=== PATIENT | female | born 1955 | race Caucasian/White ===

== ENCOUNTER → 2017-09-23 03:13 | Outpatient (CLI) | payer OTHER, SELFPAY ==
[2017-09-23 11:41] LABS: ALT 35 U/L (12-78); AST 27 U/L (15-37); Albumin 3.8 g/dL (3.4-5.0); Alkaline Phosphatase 37 U/L (46-116); Anion Gap 6.5 mmol/L (3-11); BUN 11 mg/dL (7-18); CO2 31.5 mmol/L (21.0-32.0); CREATININE 0.91 mg/dL (0.55-1.02); Chloride 105 mmol/L (98-107); Glucose 91 mg/dL (70-100); Potassium 4.3 mmol/L (3.5-5.1); Sodium 143 mmol/L (136-145); Total Protein 6.4 g/dL (6.4-8.2)
== END ==
DX: F41.9 Anxiety disorder, unspecified (principal); K21.9 Gastro-esophageal reflux disease without esophagitis; R00.2 Palpitations
CPT/HCPCS: 36415; 80053

== ENCOUNTER 2018-01-08 06:46 | Day surgery (SDC) | payer OTHER, SELFPAY ==
--- NOTE | 2018-01-07 09:07 | W.PIPPEYE ---
History of Present Illness Chief Complaint: Progressive decreased vision, right eye Narrative: The patient is a 62-year-old lady who presented with complaints of progressive decreased vision in both eyes at both distance and near. She can no longer read either with or without glasses. On examination she was noted to have significant bilateral nuclear cataracts with best corrected vision of 20/50 OD, 20/40 OS. The option of cataract surgery was offered to the patient and she felt she was symptomatic enough that she wished to proceed. NOTE: The Chief Complaint, HPI, Past Medical History, Past Surgical History, Family History, Social History, Medications, and complete Ophthalmic Exam with detailed Assessment and Plan have already been documented in the patient's outpatient ophthalmic record and are not covered again in detail here. PFSH Family History Mother Diabetes Alcohol abuse Heart disease Hyperlipidemia Neoplasm Cerebrovascular accident Father Essential hypertension Heart disease Neoplasm Cerebrovascular accident Sister Essential hypertension Hyperlipidemia Sister Essential hypertension Brother Asthma Grandfather Alcohol abuse Heart disease Cerebrovascular accident Grandfather Heart disease Grandmother Heart disease Grandmother Heart disease Maternal Aunt Diabetes Heart disease Sister No problems noted. Medical History Nuclear sclerotic cataract of right eye (Acute) Endometriosis Gallbladder calculus Small bowel obstruction Surgical History Abdominal hysterectomy (~1981) Cholecystectomy (~2004) Oophrectomy, Both small bowel obstruction (~09/2000) Meds Home Medications Medication Instructions Recorded Confirmed Type Lactobacillus acidophilus 1 cap PO DAILY 07/02/12 01/05/18 History Pyridoxine Hcl 100 mg PO DAILY 07/02/12 01/05/18 History glucosam-chond km-faxear-kj ac 1 cap PO DAILY 07/02/12 01/05/18 History hawthorn extract 450 mg PO DAILY 07/02/12 01/05/18 History lysine [L-Lysine] 500 mg PO DAILY PRN 07/02/12 01/05/18 History omega-3 fatty acids-fish oil 1 cap PO DAILY 07/02/12 01/05/18 History Lymph Gland Cleanse 850 mg PO DAILY 08/25/14 01/05/18 History aspirin [Aspir 81] 81 mg PO DAILY tab-cap 08/25/14 01/05/18 History calcium carbonate-mag oxide 1 ea PO DAILY 08/25/14 01/05/18 History [Oyster Shell Calcium-Magnes Tb] coenzyme Q10 [Coq-10] 100 mg PO DAILY PRN 08/25/14 01/05/18 History echinacea 500 mg PO DAILY PRN 08/25/14 01/05/18 History multivitamin [Daily Vitamin] 1 ea PO daily prn 08/25/14 12/23/17 History penciclovir [Denavir] 1 denise TOPICAL DIRECTED #1.5 gm 09/03/15 01/05/18 History polyethylene glycol 3350 [Miralax] 1 cap PO DAILY 09/03/15 01/05/18 History amitriptyline 5 mg PO HS PRN #30 tab 09/07/17 01/05/18 History atenolol 0.5 tab PO DAILY #45 tab-cap 09/07/17 01/05/18 Rx Allergies Allergy/AdvReac Type Severity Reaction Status Date / Time tomato Allergy Intermediate SORES Unverified 01/05/18 14:16 nickel Allergy RED RUNNY Unverified 01/05/18 14:16 RASH DUST Allergy Intermediate Uncoded 01/05/18 14:16 Exam OCULAR EXAM:: Visual acuity at distance: Best corrected to 20/50 right eye, 20/40 left eye. Pupils: Pupils equal, round, and reactive without afferent pupillary defect IOP: 12 OD 11 OS Extraocular Motility: Normal Pertinent Slit Lamp Findings: Significant for pupils dilating to 7 mm OU. 3+ yellow nuclear cataract OU. Dilated Funduscopic Examination: Significant for disc cupping of 0.3 OU with good color. The optic nerves have good perfusion and normal color. The retinal vasculature is normal without significant tortuosity or abnormality. The maculas are normal in appearance with normal contour and foveal reflex appropriate for age. The peripheral retina and vitreous are normal. BRIGHTNESS ACUITY TESTING (BAT):: Off right eye 20/50 Low: 20/60 Medium: 20/60 High: 20/80 Assessment and Plan (1) Nuclear sclerotic cataract of right eye: Current visit: No Status: Acute Assessment: Visually significant cataract, right eye. Plan: Cataract extraction with intraocular lens implantation, right eye Note: NOTE:: The details of the planned surgery, including the risks, indications,limitations,expectations,outcome and possible complications were explained to the patient. The patient understands the complications including, but not limited to: infection, hemorrhage, posterior dislocation of the lens or nuclear fragments which may require the intervention of a vitreoretinal surgeon, possible loss of the eye, or from anesthetic complications. The patient has been made aware of the option of not having surgery, that vision following surgery may not be equal to that prior to surgery, and that the planned surgery may not achieve the intended results. Following this discussion, which the patient appeared to understand, the patient wishes to proceed with cataract surgery with lens implantation of the affected eye to improve and maximize vision.
--- NOTE | 2018-01-07 09:10 | POEE_ITS ---
History of Present Illness Chief Complaint: Progressive decreased vision, right eye Narrative: The patient is a 62-year-old lady who presented with complaints of progressive decreased vision in both eyes at both distance and near. She can no longer read either with or without glasses. On examination she was noted to have significant bilateral nuclear cataracts with best corrected vision of 20/ 50 OD, 20/40 OS. The option of cataract surgery was offered to the patient and she felt she was symptomatic enough that she wished to proceed. NOTE: The Chief Complaint, HPI, Past Medical History, Past Surgical History, Family History, Social History, Medications, and complete Ophthalmic Exam with detailed Assessment and Plan have already been documented in the patient's outpatient ophthalmic record and are not covered again in detail here. PFSH Family History Mother Diabetes Alcohol abuse Heart disease Hyperlipidemia Neoplasm Cerebrovascular accident Father Essential hypertension Heart disease Neoplasm Cerebrovascular accident Sister Essential hypertension Hyperlipidemia Sister Essential hypertension Brother Asthma Grandfather Alcohol abuse Heart disease Cerebrovascular accident Grandfather Heart disease Grandmother Heart disease Grandmother Heart disease Maternal Aunt Diabetes Heart disease Sister No problems noted. Medical History Nuclear sclerotic cataract of right eye (Acute) Endometriosis Gallbladder calculus Small bowel obstruction Surgical History Abdominal hysterectomy (~1981) Cholecystectomy (~2004) Oophrectomy, Both small bowel obstruction (~09/2000) Meds Home Medications Medication Instructions Recorded Confirmed Type Lactobacillus acidophilus 1 cap PO DAILY 07/02/12 01/05/18 History Pyridoxine Hcl 100 mg PO DAILY 07/02/12 01/05/18 History glucosam-chond kq-qrvnbf-hw ac 1 cap PO DAILY 07/02/12 01/05/18 History hawthorn extract 450 mg PO DAILY 07/02/12 01/05/18 History lysine [L-Lysine] 500 mg PO DAILY PRN 07/02/12 01/05/18 History omega-3 fatty acids-fish oil 1 cap PO DAILY 07/02/12 01/05/18 History Lymph Gland Cleanse 850 mg PO DAILY 08/25/14 01/05/18 History aspirin [Aspir 81] 81 mg PO DAILY tab-cap 08/25/14 01/05/18 History calcium carbonate-mag oxide 1 ea PO DAILY 08/25/14 01/05/18 History [Oyster Shell Calcium-Magnes Tb] coenzyme Q10 [Coq-10] 100 mg PO DAILY PRN 08/25/14 01/05/18 History echinacea 500 mg PO DAILY PRN 08/25/14 01/05/18 History multivitamin [Daily Vitamin] 1 ea PO daily prn 08/25/14 12/23/17 History penciclovir [Denavir] 1 denise TOPICAL DIRECTED #1.5 gm 09/03/15 01/05/18 History polyethylene glycol 3350 [Miralax] 1 cap PO DAILY 09/03/15 01/05/18 History amitriptyline 5 mg PO HS PRN #30 tab 09/07/17 01/05/18 History atenolol 0.5 tab PO DAILY #45 tab-cap 09/07/17 01/05/18 Rx Allergies Allergy/AdvReac Type Severity Reaction Status Date / Time tomato Allergy Intermediate SORES Unverified 01/05/18 14:16 nickel Allergy RED RUNNY Unverified 01/05/18 14:16 RASH DUST Allergy Intermediate Uncoded 01/05/18 14:16 Exam OCULAR EXAM:: Visual acuity at distance: Best corrected to 20/50 right eye, 20/ 40 left eye. Pupils: Pupils equal, round, and reactive without afferent pupillary defect IOP: 12 OD 11 OS Extraocular Motility: Normal Pertinent Slit Lamp Findings: Significant for pupils dilating to 7 mm OU. 3+ yellow nuclear cataract OU. Dilated Funduscopic Examination: Significant for disc cupping of 0.3 OU with good color. The optic nerves have good perfusion and normal color. The retinal vasculature is normal without significant tortuosity or abnormality. The maculas are normal in appearance with normal contour and foveal reflex appropriate for age. The peripheral retina and vitreous are normal. BRIGHTNESS ACUITY TESTING (BAT):: Off right eye 20/50 Low: 20/60 Medium: 20/60 High: 20/80 Assessment and Plan (1) Nuclear sclerotic cataract of right eye: Current visit: No Status: Acute Assessment: Visually significant cataract, right eye. Plan: Cataract extraction with intraocular lens implantation, right eye Note: NOTE:: The details of the planned surgery, including the risks, indications, limitations,expectations,outcome and possible complications were explained to the patient. The patient understands the complications including, but not limited to: infection, hemorrhage, posterior dislocation of the lens or nuclear fragments which may require the intervention of a vitreoretinal surgeon, possible loss of the eye, or from anesthetic complications. The patient has been made aware of the option of not having surgery, that vision following surgery may not be equal to that prior to surgery, and that the planned surgery may not achieve the intended results. Following this discussion, which the patient appeared to understand, the patient wishes to proceed with cataract surgery with lens implantation of the affected eye to improve and maximize vision.
[2018-01-08 06:59] VITALS: BP 102/55; PULSE 63; RESP 16; TEMP 35.5; O2SAT 95
[2018-01-08] MEDS: Tetracaine 0.5% 4 ML BTL OD ×4 (07:19→08:18)
[2018-01-08] MEDS: Tropicam./Phenyleph. (1/2.5%) 5 ML BTL OD ×3 (07:20→07:56)
[2018-01-08] MEDS: Lidocaine 2% Jelly 6 ML SYR (08:23)
[2018-01-08] MEDS: Lidocaine 1% Pres-Free 5 ML VIAL (08:23)
[2018-01-08] MEDS: Balanced Salt Soln.-PLUS 500 ML BAG (08:23)
[2018-01-08] MEDS: Povidone-Iodine Ophth 30 ML BTL (08:23)
[2018-01-08 09:10] VITALS: BP 91/57; PULSE 63; RESP 16; TEMP 36.7; O2SAT 94
--- NOTE | 2018-01-08 09:39 | W.PM.DSUDISC ---
Discharge Plan Discharge Details Attending Provider: Chun Agudelo Primary Care Provider: Bess Adamson Home Meds and New Rx's Prescriptions: No Action lysine [L-Lysine] 500 MG capsule 500 mg PO DAILY PRNRF: 0 hawthorn extract 150 MG capsule 450 mg PO DAILY RF: 0 omega-3 fatty acids-fish oil 1 EACH capsule 1 cap PO DAILY RF: 0 Lactobacillus acidophilus 1 EACH capsule 1 cap PO DAILY RF: 0 glucosam-chond zj-qvarnd-gt ac 1 EACH capsule 1 cap PO DAILY RF: 0 PYRIDOXINE HCL 100 MG tablet 100 mg PO DAILY RF: 0 multivitamin [Daily Vitamin] 1 EACH tablet 1 ea PO daily prn RF: 0 aspirin [Aspir-81] 81 MG tablet,delayed release (DR/EC) 81 mg PO DAILY RF: 0 echinacea 500 MG capsule 500 mg PO DAILY PRN RF: 0 coenzyme Q10 [CoQ-10] 100 MG capsule 100 mg PO DAILY PRN RF: 0 calcium carbonate-mag oxide [Oyster Shell Calcium and Mag] 1 EACH tablet 1 ea PO DAILY RF: 0 lymph gland cleanse 850 mg PO DAILY RF: 0 polyethylene glycol 3350 [Miralax] 119 GM powder 1 cap PO DAILY RF: 0 penciclovir [Denavir] 1.5 GM cream 1 denise Topical DIRECTED Qty: 1.5 RF: 4 atenolol 25 MG tablet 0.5 tab PO DAILY Qty: 45 RF: 4 amitriptyline 10 MG tablet 5 mg PO HS PRNQty: 30 RF: 11 Discharge Instructions Stand Alone Forms: Post-op Topical Cataract, Abad Hernández (DSU) DS: Diagnosis Discharge Diagnosis (1) Nuclear sclerotic cataract of right eye: Status: Resolved (2) Status post cataract extraction and insertion of intraocular lens of right eye: Status: Chronic
--- NOTE | 2018-01-08 09:40 | W.PM.OP ---
Date of service: 01/08/18 Time of Service: 09:40 Operative Note DATE OF PROCEDURE: 01/08/18 PRE-OP DIAGNOSIS: Cataract, right eye POST-OP DIAGNOSIS: same SURGEON: Chun Agudelo ANESTHESIA: MAC and local (sub-tenon's anesthetic infiltration) PATHOLOGY: none sent COMPLICATIONS: None Patient was transported to: same day Patient's condition: stable Implants: [employer] / [employer] Tecnis [id number] Indications: Progressive decreased vision due to cataract, right eye Procedure Description: CATARACT SURGERY OPERATIVE REPORT PREOPERATIVE DIAGNOSIS: Nuclear cataract, right eye POSTOPERATIVE DIAGNOSIS: Same OPERATION: Cataract extraction using phacoemulsification with posterior chamber intraocular lens implant, right eye. IOL: IOL Stretching Machine Tender Frame/Model: [employer] / MARYANNE Tecnis [id number] IOL Power: + 23.50 diopters IOL Serial Number: [id number] Optic Diameter: 6.0mm Haptic/Overall Diameter: 13.0mm PHACO INFO: Pete [employer] Vision System with OZil and Active [employer]uidics Cumulative Dispersed Energy (CDE): 12.29 seconds SURGEON: Chun Agudelo MD, THOM ANESTHESIA: Monitored Anesthesia Care (MAC), with local sub-tenon's anesthetic infiltration COMPLICATIONS: None SPECIMENS: None INDICATIONS FOR PROCEDURE: The patient is a 62-year old lady with history of progressive decreased vision in both eyes. She was noted to have significant bilateral nuclear cataracts. Best corrected vision measures 20/50 in the right eye. The option of cataract surgery was offered to the patient and she felt she was symptomatic enough that she wished to proceed. PROCEDURE: The correct surgical eye was identified and marked as the right eye and the pupil was dilated in the preoperative area using mydriatics and cycloplegics. The dilated pupil size was 7.0 mm. Oral sedation was administered in the form of an Imprimis MKO Melt (midazolam 3mg/ketamine 25mg/ondansetron 2mg). The patient was brought to the operating room where cardiopulmonary monitoring was instituted and surgical time-out was performed, confirming the correct operative eye and IOL power. Topical anesthesia was administered and ophthalmic povidone-iodine 5% was instilled into the conjunctival fornices. Lidocaine gel was applied to the cornea and the ty-ocular area was prepped with Betadine 10% solution and draped in the usual sterile fashion for intraocular surgery. Steri-strips were used to cover the lashes and lid margins and an adhesive eye drape was placed. Care was taken to isolate the lashes and lid margins under the Steri-strips and adhesive eye drape. A lid speculum was placed between the lids of the operative eye and the Xu-Kari operating microscope was maneuvered into position. Jericho scissors were then used to make a conjunctival buttonhole approximately 6mm posterior to the limbus in the inferonasal quadrant. Blunt dissection was carried out to expose bare sclera, and a blunt-tipped sub-tenon?s anesthesia cannula was introduced and passed posteriorly along the globe where non-preserved plain lidocaine was injected into posterior sub-Tenon?s space. A sideport knife was used to make a paracentesis port at the 7:00 postion and the anterior chamber was filled with Healon GV. A 2.4mm keratome knife was used to create a half-thickness groove at the limbus and then to construct a three-plane near-clear corneal tunnel extending 2.0mm into clear cornea at the 10:00 position. A flap was raised on the anterior capsule and capsulorhexis forceps were used to complete a continuous curvilinear capsulorhexis of 4.8 mm, slightly oval obliquely. Balanced salt solution was then used to perform cortical cleaving hydrodissection and nuclear hydrodelineation until the lens could be freely rotated within the capsular bag. The lens nucleus was then disassembled and removed within the capsular bag and iris plane using phacoemulsification. Residual cortical material was removed using the 45-degree angled silicone I/A tip with 0.3mm port. The posterior capsule was carefully polished to remove as much residual lens epithelial cells as safely possible. The capsular bag was then inflated and the anterior chamber deepened with viscoelastic. The lens implant described above was inserted into the capsular bag using the MARYANNE Dawson Injector. A Kuglen hook was used to dial the IOL into position. Residual viscoelastic was then removed first from posterior to the IOL, then from the anterior chamber using the I/A handpiece. The lens implant was noted to center nicely within the capsular bag. The incisions were stromally hydrated, and the anterior chamber was reformed using BSS. Then 0.4cc of moxifloxacin 1.5mg/ml were injected into the capsular bag and anterior chamber. The incisions were checked with a Weck spear and found to be secure. Several drops of ophthalmic povidone-iodine 5% were then applied to the eye followed by two drops of Imprimis combination moxifloxacin/dexamethasone solution. The drapes were removed and a clear plastic protective eye shield was placed over the eye. The patient was then returned to [facility] in stable condition.
== END 2018-01-08 09:17 | disposition home or self-care (01) ==
PROVIDERS: Visit Provider Ophthalmology
PROC: (CPT 66984; principal; 2018-01-08 08:30)
DX: H25.11 Age-related nuclear cataract, right eye (principal)
CPT/HCPCS: 66984; V2632

== ENCOUNTER 2018-01-22 08:19 | Day surgery (SDC) | payer OTHER, SELFPAY ==
--- NOTE | 2018-01-21 16:59 | W.PIPPEYE ---
History of Present Illness Chief Complaint: Progressive decreased vision, left eye Narrative: The patient is a 62-year-old lady who presented with complaints of progressive decreased vision in both eyes at both distance and near. She noted significant difficulty with reading either with or without glasses and trouble seeing her computer. On examination she was noted to have moderately advanced bilateral nuclear cataracts with best corrected vision of 20/50 right eye, 20/40 left eye. She underwent cataract surgery in the right eye on 01/08/2018. Postoperatively she has regained uncorrected vision of 20/20 in the right eye at distance. She now presents for cataract surgery in the left eye NOTE: The Chief Complaint, HPI, Past Medical History, Past Surgical History, Family History, Social History, Medications, and complete Ophthalmic Exam with detailed Assessment and Plan have already been documented in the patient's outpatient ophthalmic record and are not covered again in detail here. PFSH Nuclear sclerotic cataract of left eye (Acute) Nuclear sclerotic cataract of right eye (Resolved) Endometriosis Gallbladder calculus Small bowel obstruction Status post cataract extraction and insertion of intraocular lens of right eye (Chronic 01/08/18) Abdominal hysterectomy (~1981) Cholecystectomy (~2004) Oophrectomy, Both small bowel obstruction (~09/2000) Family History Mother Diabetes Alcohol abuse Heart disease Hyperlipidemia Neoplasm Stroke Father Essential hypertension Heart disease Neoplasm Stroke Sister Essential hypertension Hyperlipidemia Sister Essential hypertension Brother Asthma Grandfather Alcohol abuse Heart disease Stroke Grandfather Heart disease Grandmother Heart disease Grandmother Heart disease Maternal Aunt Diabetes Heart disease Sister No problems noted. Social History Smoking/Tobacco Use Status: Never Meds Home Medications Medication Instructions Recorded Confirmed Type Lactobacillus acidophilus 1 cap PO DAILY 07/02/12 01/08/18 History Pyridoxine Hcl 100 mg PO DAILY 07/02/12 01/08/18 History glucosam-chond qf-eegxok-io ac 1 cap PO DAILY 07/02/12 01/08/18 History hawthorn extract 450 mg PO DAILY 07/02/12 01/08/18 History lysine [L-Lysine] 500 mg PO DAILY PRN 07/02/12 01/08/18 History omega-3 fatty acids-fish oil 1 cap PO DAILY 07/02/12 01/08/18 History Lymph Gland Cleanse 850 mg PO DAILY 08/25/14 01/08/18 History aspirin [Aspir 81] 81 mg PO DAILY tab-cap 08/25/14 01/08/18 History calcium carbonate-mag oxide 1 ea PO DAILY 08/25/14 01/08/18 History [Oyster Shell Calcium-Magnes Tb] coenzyme Q10 [Coq-10] 100 mg PO DAILY PRN 08/25/14 01/08/18 History echinacea 500 mg PO DAILY PRN 08/25/14 01/08/18 History multivitamin [Daily Vitamin] 1 ea PO daily prn 08/25/14 01/08/18 History penciclovir [Denavir] 1 denise TOPICAL DIRECTED #1.5 gm 09/03/15 01/08/18 History polyethylene glycol 3350 [Miralax] 1 cap PO DAILY 09/03/15 01/08/18 History amitriptyline 5 mg PO HS PRN #30 tab 09/07/17 01/08/18 History atenolol 0.5 tab PO DAILY #45 tab-cap 09/07/17 01/08/18 Rx Allergies Allergy/AdvReac Type Severity Reaction Status Date / Time tomato Allergy Intermediate SORES Unverified 01/05/18 14:16 nickel Allergy RED RUNNY Unverified 01/05/18 14:16 RASH DUST Allergy Intermediate Uncoded 01/05/18 14:16 Exam OCULAR EXAM:: Most recent ocular examination revealed uncorrected visual acuity of 20/20 in the right eye, best corrected acuity of 20/40 in the left eye. Intraocular pressure 12 OD, 11 OS. Pupils equal, round, and reactive without afferent pupillary defect. Extraocular motility is normal. Slit-lamp examination reveals pupils dilating to 7 mm OU. Well-positioned PCIOL OD with clear posterior capsule. 3+ yellow nuclear cataract OS. Dilated funduscopic examination shows disc cupping of 0.3 OU with good color. The optic nerves have good perfusion and normal color. The retinal vasculature is normal without significant tortuosity or abnormality. The maculas are normal in appearance with normal contour and foveal reflex appropriate for age. The peripheral retina and vitreous are normal. BRIGHTNESS ACUITY TESTING (BAT):: Brightness acuity testing of the left eye off is 20/40. Low is 20/50, medium is 20/60, high is 20/60. Assessment and Plan (1) Nuclear sclerotic cataract of left eye: Current visit: No Status: Acute Note: NOTE:: The details of the planned surgery, including the risks, indications,limitations,expectations,outcome and possible complications were explained to the patient. The patient understands the complications including, but not limited to: infection, hemorrhage, posterior dislocation of the lens or nuclear fragments which may require the intervention of a vitreoretinal surgeon, possible loss of the eye, or from anesthetic complications. The patient has been made aware of the option of not having surgery, that vision following surgery may not be equal to that prior to surgery, and that the planned surgery may not achieve the intended results. Following this discussion, which the patient appeared to understand, the patient wishes to proceed with cataract surgery with lens implantation of the affected eye to improve and maximize vision.
[2018-01-22 08:32] VITALS: BP 97/55; PULSE 64; RESP 16; TEMP 35.8; O2SAT 97
[2018-01-22] MEDS: Tetracaine 0.5% 4 ML BTL OS ×4 (08:46→09:40)
[2018-01-22] MEDS: Tropicam./Phenyleph. (1/2.5%) 5 ML BTL OS ×3 (08:47→09:04)
[2018-01-22] MEDS: Lidocaine 2% Jelly 6 ML SYR (09:41)
[2018-01-22] MEDS: Povidone-Iodine Ophth 30 ML BTL (09:41)
[2018-01-22] MEDS: Lidocaine 1% Pres-Free 5 ML VIAL (09:46)
[2018-01-22] MEDS: Balanced Salt Soln.-PLUS 500 ML BAG (09:47)
--- NOTE | 2018-01-22 10:13 | W.PM.DSUDISC ---
Discharge Plan Discharge Details Reason For Visit: CATARACT OS Attending Provider: Chun Agudelo Primary Care Provider: Bess Adamson Home Meds and New Rx's Prescriptions: No Action L-Lysine 500 MG capsule 500 mg PO DAILY PRNRF: 0 hawthorn extract 150 MG capsule 450 mg PO DAILY RF: 0 omega-3 fatty acids-fish oil 1 EACH capsule 1 cap PO DAILY RF: 0 Lactobacillus acidophilus 1 EACH capsule 1 cap PO DAILY RF: 0 glucosam-chond iy-wzjqeq-go ac 1 EACH capsule 1 cap PO DAILY RF: 0 PYRIDOXINE HCL 100 MG tablet 100 mg PO DAILY RF: 0 multivitamin [Daily Vitamin] 1 EACH tablet 1 ea PO daily prn RF: 0 aspirin [Aspir-81] 81 MG tablet,delayed release (DR/EC) 81 mg PO DAILY RF: 0 echinacea 500 MG capsule 500 mg PO DAILY PRN RF: 0 coenzyme Q10 [CoQ-10] 100 MG capsule 100 mg PO DAILY PRN RF: 0 Oyster Shell Calcium and Mag 1 EACH tablet 1 ea PO DAILY RF: 0 lymph gland cleanse 850 mg PO DAILY RF: 0 polyethylene glycol 3350 [Miralax] 119 GM powder 1 cap PO DAILY RF: 0 Denavir 1.5 GM cream 1 denise Topical DIRECTED Qty: 1.5 RF: 4 atenolol 25 MG tablet 0.5 tab PO DAILY Qty: 45 RF: 4 amitriptyline 10 MG tablet 5 mg PO HS PRNQty: 30 RF: 11 Discharge Instructions Stand Alone Forms: Post-op Topical Cataract, Abad Hernández (DSU) DS: Diagnosis Discharge Diagnosis (1) Status post cataract extraction and insertion of intraocular lens of left eye: Status: Chronic
--- NOTE | 2018-01-22 10:14 | W.PM.OP ---
Date of service: 01/22/18 Time of Service: 10:14 Operative Note DATE OF PROCEDURE: 01/22/18 PRE-OP DIAGNOSIS: Cataract, left eye POST-OP DIAGNOSIS: same PROCEDURE: Cataract extraction using phacoemulsification with intraocular lens implant, left eye SURGEON: Chun Agudelo ANESTHESIA: MAC and local (sub-tenon's anesthetic infiltration) PATHOLOGY: none sent COMPLICATIONS: None Patient was transported to: same day Patient's condition: stable Implants: [employer] / [employer] Tecnis [id number] Indications: Progressive decreased vision due to cataract, left eye Procedure Description: CATARACT SURGERY OPERATIVE REPORT PREOPERATIVE DIAGNOSIS: Nuclear cataract, left eye POSTOPERATIVE DIAGNOSIS: Same OPERATION: Cataract extraction using phacoemulsification with posterior chamber intraocular lens implant, left eye. 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: [employer] Vision / MARYANNE Tecnis [id number] IOL Power: + 23.50 diopters IOL Serial Number: [id number] Optic Diameter: 6.0mm Haptic/Overall Diameter: 13.0mm PHACO INFO: Pete Huddlerurion Vision System with OZil and Active Fluidics Cumulative Dispersed Energy (CDE): 15.04 seconds SURGEON: Chun Agudelo MD, THOM ANESTHESIA: Monitored Anesthesia Care (MAC), with local sub-tenon's anesthetic infiltration COMPLICATIONS: None SPECIMENS: None INDICATIONS FOR PROCEDURE: The patient is a 62-year-old lady with history of diminished visual acuity in both eyes secondary to the development of bilateral nuclear cataract. She was significantly symptomatic that she desired cataract surgery. She has already undergone cataract surgery in the right eye on 01/08/2018. She has regained uncorrected visual acuity of 20/20 in the right eye. She now presents for cataract surgery in the left eye. PROCEDURE: The correct surgical eye was identified and marked as the left eye and the pupil was dilated in the preoperative area using mydriatics and cycloplegics. The dilated pupil size was 7.0 mm. Oral sedation was administered in the form of an Imprimis MKO Melt (midazolam 3mg/ketamine 25mg/ondansetron 2mg). The patient was brought to the operating room where cardiopulmonary monitoring was instituted and surgical time-out was performed, confirming the correct operative eye and IOL power. Topical anesthesia was administered and ophthalmic povidone-iodine 5% was instilled into the conjunctival fornices. Lidocaine gel was applied to the cornea and the ty-ocular area was prepped with Betadine 10% solution and draped in the usual sterile fashion for intraocular surgery, including an aperture drape. A Tegaderm transparent film dressing was cut in half and used to cover the lashes and lid margins. Care was taken to sequester the lashes and lid margins under the Tegaderm dressing. A lid speculum was placed between the lids of the operative eye and the Xu-Kari operating microscope was maneuvered into position. Jericho scissors were then used to make a conjunctival buttonhole approximately 6mm posterior to the limbus in the inferonasal quadrant. Blunt dissection was carried out to expose bare sclera, and a blunt-tipped sub-tenon?s anesthesia cannula was introduced and passed posteriorly along the globe where non-preserved plain lidocaine was injected into posterior sub-Tenon?s space. A sideport knife was used to make a paracentesis port superior/superiortemporal, and the anterior chamber was filled with Healon GV. A 2.4mm keratome knife was used to create a half-thickness groove at the limbus and then to construct a three-plane near-clear corneal tunnel extending 2.0mm into clear cornea in the temporal position. . A flap was raised on the anterior capsule and capsulorhexis forceps were used to complete a continuous curvilinear capsulorhexis of 5.0 mm. Balanced salt solution was then used to perform cortical cleaving hydrodissection and nuclear hydrodelineation until the lens could be freely rotated within the capsular bag. The lens nucleus was then disassembled and removed within the capsular bag and iris plane using phacoemulsification. Residual cortical material was removed using the 45-degree angled silicone I/A tip with 0.3mm port. The posterior capsule was carefully polished to remove as much residual lens epithelial cells as safely possible. The capsular bag was then inflated and the anterior chamber deepened with viscoelastic. The lens implant described above was inserted into the capsular bag using the MARYANNE Torres Martinez Injector. A Kuglen hook was used to dial the IOL into position. Residual viscoelastic was then removed first from posterior to the IOL, then from the anterior chamber using the I/A handpiece. The lens implant was noted to center nicely within the capsular bag. The incisions were stromally hydrated, and the anterior chamber was reformed using BSS. Then 0.4cc of moxifloxacin 1.5mg/ml were injected into the capsular bag and anterior chamber. The incisions were checked with a Weck spear and found to be secure. Several drops of ophthalmic povidone-iodine 5% were then applied to the eye followed by two drops of Imprimis combination moxifloxacin/dexamethasone solution. The drapes were removed and a clear plastic protective eye shield was placed over the eye. The patient was then returned to Same Day Surgery in stable condition.
[2018-01-22 10:35] VITALS: BP 110/69; PULSE 60; RESP 16; TEMP 36.6; O2SAT 97
== END 2018-01-22 10:40 | disposition home or self-care (01) ==
LOC: SUR 08:20
PROVIDERS: Visit Provider Ophthalmology
PROC: (CPT 66984; principal; 2018-01-22 09:45)
DX: H25.12 Age-related nuclear cataract, left eye (principal); K21.9 Gastro-esophageal reflux disease without esophagitis
CPT/HCPCS: 66984; V2632

== ENCOUNTER 2018-09-16 01:20 | Outpatient (CLI) | payer OTHER, SELFPAY ==
[2018-09-16 11:11] LABS: ALT 41 U/L (12-78); AST 29 U/L (15-37); Albumin 3.9 g/dL (3.4-5.0); Alkaline Phosphatase 41 U/L (46-116); Anion Gap 4.4 mmol/L (3-11); BUN 11 mg/dL (7-18); Bilirubin, Total 0.8 mg/dL (0.2-1.0); CO2 32.6 mmol/L (21.0-32.0); CREATININE 0.86 mg/dL (0.55-1.02); Chloride 104 mmol/L (98-107); Glucose 83 mg/dL (70-100); Potassium 4.3 mmol/L (3.5-5.1); Sodium 141 mmol/L (136-145); Total Protein 6.7 g/dL (6.4-8.2)
--- NOTE | 2018-09-16 11:53 | DI.MAMMO_ITS ---
SYMPTOMS/DIAGNOSIS: SCREENING, Z12.31 MAMMOGRAM: Mammograms were interpreted according to the usual protocol including computer analysis with CAD system, tomosynthesis and C view imaging. The breasts are heterogeneously dense. There are multiple focal areas of asymmetric density seen bilaterally. No dominant mass or clumped microcalcification is seen. No gross interval change in appearance in comparison with previous examinations including January 2017. CONCLUSION: No specific evidence of malignancy at this time. Routine screening examinations are suggested at yearly intervals in this age group according to the ACS/ACR guidelines. Category I. Breast density Category C. MQSA ASSESSMENT OF FINDINGS: Negative. Category 1. Patient will receive a letter notifying them of these results. Bi-RADS category C. The breasts are heterogeneously dense, which may obscure small masses.
== END 2018-09-16 01:40 ==
DX: Z12.31 Encounter for screening mammogram for malignant neoplasm of breast (principal); R10.9 Unspecified abdominal pain; K21.9 Gastro-esophageal reflux disease without esophagitis; J30.9 Allergic rhinitis, unspecified
CPT/HCPCS: 36415; 77063; 77067; 80053

== ENCOUNTER 2019-09-12 10:42 | Outpatient (CLI) | payer OTHER, SELFPAY ==
[2019-09-12 12:38] LABS: ALT 41 U/L (14-59); AST 33 U/L (15-37); Alkaline Phosphatase 39 U/L (46-116); Anion Gap 3.8 mmol/L (3-11); BUN 13 mg/dL (7-18); Bilirubin, Total 0.8 mg/dL (0.2-1.0); CO2 32.2 mmol/L (21.0-32.0); CREATININE 0.85 mg/dL (0.55-1.02); Calcium 9.7 mg/dL (8.5-10.1); Calculated LDL 128 mg/dL (<100); Chloride 105 mmol/L (98-107); Cholesterol 210 mg/dL (<200); Glucose 94 mg/dL (74-106); HDL Cholesterol 68 mg/dL (40-60); Potassium 4.5 mmol/L (3.5-5.1); Sodium 141 mmol/L (136-145); Triglyceride 73 mg/dL (<150)
== END 2019-09-12 11:02 ==
DX: I10 Essential (primary) hypertension (principal); K21.9 Gastro-esophageal reflux disease without esophagitis; K56.609 Unspecified intestinal obstruction, unspecified as to partial versus complete obstruction; R10.9 Unspecified abdominal pain; Z00.00 Encounter for general adult medical examination without abnormal findings; Z13.220 Encounter for screening for lipoid disorders
CPT/HCPCS: 36415; 80053; 80061

== ENCOUNTER 2020-10-01 02:54 | Outpatient (CLI) | payer OTHER, SELFPAY ==
[2020-10-01 11:30] LABS: HCT 35.8 % (36.0-46.0); MCH 31.4 pg (27.0-33.0); MCHC 33.5 % (32.0-36.0); MCV 93.7 fL (80-95); MPV 8.8 fL (8.0-11.0); Platelet Count 224 10^3/uL (130-400); RBC 3.82 10^6/uL (3.93-5.22); RDW-SD 41.5 fL
[2020-10-01 12:34] LABS: Iron 106 ug/dL (50-170); Total Iron Binding Capacity 290 ug/dL (250-450); Transferrin Sat 37 % (15-50)
[2020-10-01 12:36] LABS: ALT 39 U/L (14-59); AST 29 U/L (15-37); Alkaline Phosphatase 39 U/L (46-116); Anion Gap 5.9 mmol/L (3-11); BUN 13 mg/dL (7-18); Bilirubin, Total 0.7 mg/dL (0.2-1.0); CO2 33.1 mmol/L (21.0-32.0); CREATININE 0.8 mg/dL (0.55-1.02); Calcium 9.4 mg/dL (8.5-10.1); Chloride 104 mmol/L (98-107); Glucose 92 mg/dL (74-106); Potassium 4.9 mmol/L (3.5-5.1); Sodium 143 mmol/L (136-145); Total Protein 6.7 g/dL (6.4-8.2)
== END 2020-10-01 02:55 | disposition home or self-care (01) ==
LOC: LBO 02:54
DX: Z00.00 Encounter for general adult medical examination without abnormal findings (principal); D50.8 Other iron deficiency anemias; R00.2 Palpitations; R53.1 Weakness
CPT/HCPCS: 36415; 80053; 85027; 83540; 83550

== ENCOUNTER 2021-09-18 10:04 | Outpatient (REF) | payer OTHER, SELFPAY ==
[2021-09-18 11:35] LABS: C Diff PCR Negative (Negative)
[2021-09-18 22:07] LABS: Campylobacter PCR Negative (Negative); Salmonella PCR Negative (Negative); Shiga Toxin PCR Negative (Negative); Shigella/Enteroinvasive Ecoli Negative (Negative)
== END 2021-09-18 10:05 | disposition home or self-care (01) ==
LOC: LBN 10:04
PROVIDERS: Visit Provider Physician Assistant
DX: R19.7 Diarrhea, unspecified (principal); R53.83 Other fatigue
CPT/HCPCS: 87493; 87505

== ENCOUNTER → 2022-01-13 02:50 | Outpatient (CLI) | payer OTHER, SELFPAY ==
--- NOTE | 2022-01-13 07:45 | DI.MAMMO_ITS ---
Exam(s) MAMMO SCREENING EXAM: MAMMO SCREENING CLINICAL HISTORY: screening.z12.39 TECHNIQUE: Mammograms were interpreted according to the usual protocol including computer analysis w [employer] CAD system, tomosynthesis and C-view imaging. COMPARISON: 2012 through 2018 FINDINGS: The breasts are composed of heterogeneously dense fibroglandular densities, Breast Density category C . No suspicious masses or suspicious microcalcifications are seen. No skin thickening or abnormal axillary lymph nodes are seen. There has been no significant change from prior exams. IMPRESSION: BI-RADS Category 1, Negative mammogram. Yearly screening mammography is recommended. Breast Density Category C, heterogeneously Dense. The mammogram demonstrates the patient's breast tissue is dense. Dense breast tissue is very common a nd is not abnormal but dense breast tissue can make it harder to find cancer on a mammogram. Also, de nse breast tissue may increase breast cancer risk. This information about the result of the mammogram report was provided to the patient to raise their awareness. Use this report when you speak with the patient about their risks for breast cancer, which includes their family history. At that time, you may recommend additional screening tests (Ultrasound or MRI) as they might be useful based on their r isk. A negative radiographic report should not delay biopsy if a dominant or clinically suspicious mass is present. Up to ten percent of cancers are not identified on mammography. A negative report may reinforce clinical impression. Adenosis and dense breasts may obscure an underlying neoplasm. False positive reports average 6 to 10%.
== END ==
PROVIDERS: PCP Nurse Practitioner Family; Visit Provider Nurse Practitioner Family
DX: Z12.31 Encounter for screening mammogram for malignant neoplasm of breast (principal)
CPT/HCPCS: 77063; 77067

== ENCOUNTER 2022-03-18 16:19 | Outpatient (REF) | payer OTHER, SELFPAY ==
[2022-03-18 13:21] LABS: Abs Immature Grans 0.01 10^3/uL (0.0-0.06); Absolute Basophil Count 0.03 10^3/uL (0.0-0.2); Absolute Eosinophil Count 0.09 10^3/uL (0.0-0.7); Absolute Lymphocyte Count 1.08 10^3/uL (1.2-3.4); Absolute Monocyte Count 0.39 10^3/uL (0.1-0.8); Absolute Neutrophil Count 4.92 10^3/uL (1.2-6.7); Basophils % 0.5; Eosinophils % 1.4; HCT 36.5 % (36.0-46.0); HGB 12.5 g/dL (11.2-15.7); Immature Grans % 0.2; Lymphocytes % 16.6; MCH 31.2 pg (27.0-33.0); MCHC 34.2 % (32.0-36.0); MCV 91 fL (80-95); MPV 9.5 fL (8.0-11.0); Neutrophils % 75.3; Platelet Count 294 10^3/uL (130-400); RBC 4.01 10^6/uL (3.93-5.22); RDW 11.9 % (11.7-14.6); RDW-SD 40.1 fL; WBC 6.52 10^3/uL (4.4-10.8)
[2022-03-18 13:26] LABS: ESR 33 mm/hr (0-30)
[2022-03-18 13:33] LABS: ALT 26 U/L (14-59); AST 26 U/L (15-37); Alkaline Phosphatase 56 U/L (46-116); Anion Gap 4.8 mmol/L (3-11); BUN 10 mg/dL (7-18); Bilirubin, Total 0.7 mg/dL (0.2-1.0); C-Reactive Protein 0.58 mg/dL (0.0-0.3); CO2 33.2 mmol/L (21.0-32.0); CREATININE 0.9 mg/dL (0.55-1.02); Calcium 9.7 mg/dL (8.5-10.1); Chloride 103 mmol/L (98-107); Estimated GFR 69.64 (mL/min/1.73m2); Glucose 96 mg/dL (74-106); Sodium 141 mmol/L (136-145); Total Protein 7.1 g/dL (6.4-8.2)
[2022-03-20 13:43] LABS: Helicobacter pylori Ag, Feces Negative (Negative)
== END 2022-03-18 16:20 | disposition home or self-care (01) ==
LOC: LBN 16:19
PROVIDERS: PCP Nurse Practitioner Family; Visit Provider Nurse Practitioner Family
DX: R10.84 Generalized abdominal pain (principal); R19.7 Diarrhea, unspecified; R70.0 Elevated erythrocyte sedimentation rate; R79.82 Elevated C-reactive protein (CRP); R63.4 Abnormal weight loss
CPT/HCPCS: 80053; 85652; 87338; 85025; 86140

== ENCOUNTER 2022-03-26 08:23 | Day surgery (SDC) | payer OTHER, SELFPAY ==
--- NOTE | 2022-03-25 20:18 | W.PM.DSUDISC ---
Date of service: 03/26/22 Time of Service: 11:25 Discharge Plan Disposition Patient Disposition: Home Condition: Good Discharge Details Reason For Visit: EGD and colonoscopy Attending Provider: Ryder Gamez Primary Care Provider: Yovany Mckenzie Home Meds and New Rx's Prescriptions: Continued cyanocobalamin (vitamin B-12) 2,500 mcg tablet,chewable 2,500 mcg PO DAILY digestive enzymes Tablet 1 tab PO DAILY acyclovir 5 % cream 1 applic TP ONCE PRN (Reason: Recurrent lesions) Qty: 5 1RF Rx Instructions: Apply to lesion when first noticed, QID until healed or 5 days. pantoprazole 40 mg tablet,delayed release (DR/EC) 40 mg PO DAILY Qty: 30 0RF L-Lysine 500 MG capsule 500 mg PO DAILY PRN hawthorn extract 150 MG capsule 450 mg PO DAILY Lactobacillus acidophilus 1 EACH capsule 1 cap PO DAILY PYRIDOXINE HCL 100 MG tablet 100 mg PO DAILY multivitamin [Daily Vitamin] 1 EACH tablet 1 ea PO daily prn Rx Instructions: DURING WINTER MONTHS echinacea 500 MG capsule 500 mg PO DAILY PRN Rx Instructions: WINTER ONLY coenzyme Q10 [CoQ-10] 100 MG capsule 100 mg PO DAILY PRN Oyster Shell Calcium and Mag 1 EACH tablet 1 ea PO DAILY Rx Instructions: 400/200 mg atenolol 25 mg tablet 12.5 mg PO HS Rx Instructions: 12.5 MG DAILY aspirin 81 mg Capsule,Delayed Release(Dr/Ec) 81 mg PO DAILY Discharge Instructions Instructions: Gastritis (GEN) Additional Instructions: Mell, we were able to complete your EGD and colonoscopy without any difficulty today. As we talked about in the recovery area, there was not much to see by the naked eye. You did have a fair amount of bile in your stomach which is typically referred to as bile reflux gastritis, but I did not see much evidence of active inflammation of your stomach lining, duodenal lining, or esophageal lining. Similarly, your colonoscopy was largely normal. I did not see any polyps, cancers, or any other worrisome findings. As we talked about in the recovery unit, I performed multiple biopsies of the upper gastrointestinal tract as well as the lower gastrointestinal tract to see if there is any pathologic signs that would explain your symptoms. 1. If tolerated, consume a soft, low fiber diet for 1-2 days. 2[address] Do not drive, drink alcohol, operate machinery, make critical decisions, or do activities that require coordination or balance for 24 hours. 3. Because air was put into your colon during the procedure, expelling air from your rectum (passing gas or farting) is normal. 4. You may not have a bowel movement for 1-3 days because of the colonoscopy prep. This is normal. 5. You may experience a sore throat for 24 to 48 hours. You may use throat lozenges or gargle with warm salt water to relieve the discomfort. 6. Because air was put into your stomach during the procedure, you may experience some belching. 7. Go directly to the emergency room if you notice any of the following: Develop chills (warm to touch), or if you have a thermometer and your temperature is above 101 Difficulty breathing or difficultly swallowing Persistent vomiting Severe abdominal pain, other than gas cramps Severe chest pain Black, tarry stools Any bleeding ? exceeding one tablespoon 8. Call your physician if the site where your intravenous was started becomes red, swollen, painful, and warm to touch. 9. Your physician has reviewed your pre-procedure medications. Please continue to take those medications as previously ordered. You will be given specific information/education regarding any changes to your medications before leaving. Activity:: Activity as Tolerated Diet:: As Tolerated Discharge Orders Discharge Orders: Discharge Order (Routine); Ordered 03/25/22 Ordered By: Ryder Gamez DS: Diagnosis Discharge Diagnosis (1) Gastroesophageal reflux disease: Status: Acute Asessment and Plan: Follow-up on pathology biopsy results from the EGD and colonoscopy
--- NOTE | 2022-03-25 20:20 | W.COLOREPORT ---
Date of service: 03/26/22 Time of Service: 10:37 Colonoscopy Report Date of procedure: 03/26/22 Pre-op diagnosis general: Screening colonoscopy Post-op diagnosis procedure note: other (Bile reflux gastritis) Procedure: EGD with biopsies and colonoscopy with biopsies Surgeon: Ryder aGmez Anesthesia Type: General:No Airway Estimated blood loss (mL): 20 Pathology: other (Duodenal, antral, greater curvature, GE junction, and lower esophageal biopsies; random colon biopsies from cecum, ascending, transverse, descending colons, as well as rectum) Complications: None Disposition: same day Indications: Mell is a 66-year-old woman with longstanding gastroesophageal reflux disease and diarrhea Prep: Miralax/Dulcolax Procedure Start Time: 10:09 Procedure End Time: 10:37 Retraction Time: 18 Findings: Normal-appearing GE junction and Z-line at 36 cm. Bile within the stomach. Normal-appearing colon Procedure Description: After the initiation of monitored anesthetic care, and with the assistance of a bite block, I advanced a standard gastroscope through the mouth past the hypopharynx and into the esophagus.? Under the direct vision of the scope, I advanced down the esophagus into the stomach.? Once I entered the stomach, I performed a brief inspection, followed by retroflexion towards the gastric cardia.? There was a moderate amount of bile within the stomach. I suctioned this clear. Stomach anatomy appeared normal.? After that, I gently advanced the scope around the incisura angularis and examined the pylorus.? This also appeared normal.? Next, I advanced the scope through the pylorus into the duodenum.? The mucosa was pink and healthy appearing.? There were no abnormalities.? I was able to visualize bile draining into the duodenum through the ampulla Vater. ?Next, I began retracting the endoscope.? I perform random biopsies of the duodenum, antrum, again, I returned to the stomach which was carefully examined once again.? There was already some bile refluxing up into the stomach. I evacuated this. I then gently desufflated some of the stomach, and withdrew the endoscope into the distal esophagus. Z-line and GE junction were normal-appearing at 36 cm. ?Finally, I withdrew the scope along the length of the esophagus taking great care to examine the entirety of the mucosa.? I perform random biopsies of the GE junction and lower esophagus. This was done with cold forceps. There was minimal bleeding. After the induction of monitored anesthetic care, and with the patient in left lateral decubitus position, I began by performing an external anorectal exam.? Perineum and skin were normal, as was the anal verge.? There was no evidence of external hemorrhoids.? Next, I performed a digital rectal exam.? I did not appreciate any abnormal findings.? Next, I advanced a colonoscope into the rectal vault.? I performed retroflexion.? Normal.? Using insufflation, I then advanced the colonoscope beyond the rectal folds and into the sigmoid colon before advancing towards the cecum.? The quality of the prep was adequate. There was a large volume of liquid prep throughout the colon that was easily evacuated.? The scope was noted to be in the cecum by identification of the ileocecal valve and appendiceal orifice.? I then began withdrawing the colonoscope using repeated irrigation as necessary for full evaluation of the colonic mucosa. ?Once the scope was withdrawn to the level of the rectum, great care was taken to examine portions of the rectal folds.? Along the course of the retraction, I performed random biopsies of the cecum, ascending, transverse and descending colons, as well as the rectum. Finally, the scope was withdrawn and the patient was brought to the same-day surgery recovery unit as the anesthetic wore off. ?The findings and instructions were shared with the patient prior to discharge.
[2022-03-26 08:42] VITALS: BP 107/72; PULSE 62; RESP 16; TEMP 36.1; O2SAT 97
[2022-03-26] MEDS: Lactated Ringers 1,000 ML 80 ML IV (08:55)
--- NOTE | 2022-03-26 09:16 | ANES.PREOP_ITS ---
General Info Date of Service Date Performed: 03/26/22 Height: 5 ft 2.5 in Weight: 46.6 kg Body Mass Index (BMI): 18.5 Surgical Procedure: Operation Date: 03/26/22 10:05 Proposed Procedure Side Surgeon p Colonoscopy/Gastroscopy Ryder Gamez MD Meds Allergies and Home Medications Allergies Allergy/AdvReac Type Severity Reaction Status Date / Time tomato Allergy Intermediate SORES Verified 03/26/22 08:46 nickel Allergy RED RUNNY Verified 03/26/22 08:46 RASH DUST Allergy Intermediate Other (See Uncoded 03/26/22 08:46 Comment) Home Medication Medication Instructions Recorded Lactobacillus acidophilus 100 1 cap PO DAILY 07/02/12 million cell capsule Pyridoxine Hcl 100 mg PO DAILY 07/02/12 hawthorn extract 150 mg capsule 450 mg PO DAILY 07/02/12 lysine 500 mg capsule (L-Lysine) 500 mg PO DAILY PRN 07/02/12 calcium carbonate-magnesium oxide 1 ea PO DAILY 08/25/14 250 mg-155 mg tablet (Oyster Shell Calcium and Magnesium) coenzyme Q10 100 mg capsule 100 mg PO DAILY PRN 08/25/14 (CoQ-10) echinacea 500 mg capsule 500 mg PO DAILY PRN 08/25/14 multivitamin (Daily Vitamin tablet) 1 ea PO daily prn 08/25/14 cyanocobalamin (vitamin B-12) 2,500 mcg PO DAILY 09/17/21 2,500 mcg chewable tablet digestive enzymes 1 tab PO DAILY 09/17/21 acyclovir 5 % topical cream 1 applic topical ONCE PRN 12/21/21 Recurrent lesions #5 grams pantoprazole 40 mg tablet,delayed 40 mg PO DAILY #30 tabs 03/18/22 release aspirin 81 mg capsule,delayed 81 mg PO DAILY 03/25/22 release atenolol 25 mg tablet 12.5 mg PO HS 03/25/22 Current Visit Medications: Current Medications Generic Name Dose Route Start Last Admin Trade Name Freq PRN Reason Stop Dose Admin Hyoscyamine Sulfate 0.125 mg 03/25/22 20:21 Hyoscyamine 0.125 Mg Sl/Oral/Chew SL PRN PRN Ringer's Solution 1,000 mls @ 80 mls/hr 03/26/22 06:00 03/26/22 08:55 IV 04/24/22 23:59 80 mls/hr INFUSION ARIANNA Administration IV Miscellaneous Supplies 1 each 03/26/22 06:00 Iv Access IV 04/24/22 23:59 DIRECTED ARIANNA Ondansetron HCl 4 mg 03/25/22 20:21 Ondansetron 4 Mg/2 Ml Vial IVP Q4H PRN PRN Nausea / Vomiting Sodium Chloride 0 ml 03/26/22 06:00 Normal Saline Flush 10 Ml Syr IV 04/24/22 23:59 PRN PRN Sodium Chloride 0 ml 03/26/22 06:00 Normal Saline 10 Ml Vial IJ 04/24/22 23:59 DIRECTED PRN Sterile Water 0 ml 03/26/22 06:00 Water,Injection,Sterile 10 Ml Vial IJ 04/24/22 23:59 DIRECTED PRN PFSH Active Problems Active Problems: Problem Status Onset Code Acquired absence of both cervix and uterus 01/01/16 Z90.710 Allergic rhinitis 07/07/13 J30.9 Gastroesophageal reflux disease K21.9 Palpitations R00.2 Status post cataract extraction and insertion of intraocular lens of right eye 01/08/18 Z98.41, Z96.1 Status post cataract extraction and insertion of intraocular lens of left eye 01/22/18 Z98.42, Z96.1 Status post cholecystectomy Z90.49 History of bilateral oophorectomy Z90.722 Atrophic vaginitis N95.2 Diarrhea R19.7 Medical History Medical History Abdominal pain Acquired iron deficiency anemia due to increased iron requirement Carpal tunnel syndrome of left wrist (09/03/15) Chest pain Pt. denies this, stated it was caused from GERD COVID-19 06/27/21 Endometriosis Gallbladder calculus Intestinal obstruction Nuclear sclerotic cataract of left eye Nuclear sclerotic cataract of right eye Screening cholesterol level Small bowel obstruction Surgical History Surgical History Abdominal hysterectomy (~1981) Cholecystectomy (~2004) H/O colonoscopy H/O esophagogastroduodenoscopy Oophrectomy, Both 1982 small bowel obstruction (~09/2000) Status post abdominal hysterectomy Tobacco Smoking/Tobacco Use Status: Never Passive smoking exposure: Yes Second hand exposure: Yes Alcohol Alcohol Intake: current Alcohol intake frequency: holidays/special occasions only Alcohol type: wine Substance Use Substance use: Daily Substance use type: marijuana Counseling provided: none Vital Signs and Lab Results Vital Signs Most Recent Vital Signs in EMR: Most Recent Vital Signs Temp Pulse Resp BP Pulse Ox 36.1 C L 62 16 107/72 97 03/26/22 08:42 03/26/22 08:42 03/26/22 08:42 03/26/22 08:42 03/26/22 08:42 Lab Results Blood Type / Crossmatch: No Data to Display Complete Blood Count: White Blood Count 6.52 10^3/uL (4.4-10.8) 03/18/22 10:15 Red Blood Count 4.01 10^6/uL (3.93-5.22) 03/18/22 10:15 Hemoglobin 12.5 g/dL (11.2-15.7) 03/18/22 10:15 Hematocrit 36.5 % (36.0-46.0) 03/18/22 10:15 Platelet Count 294 10^3/uL (130-400) 03/18/22 10:15 Complete Metabolic Panel: Sodium 141 mmol/L (136-145) 03/18/22 10:15 Potassium 4.0 mmol/L (3.5-5.1) 03/18/22 10:15 Chloride 103 mmol/L (98-107) 03/18/22 10:15 Carbon Dioxide 33.2 mmol/L (21.0-32.0) H 03/18/22 10:15 BUN 10 mg/dL (7-18) 03/18/22 10:15 Creatinine 0.9 mg/dL (0.55-1.02) 03/18/22 10:15 Est GFR (CKD-EPI 2020) 69.64 (mL/min/1.73m2) 03/18/22 10:15 Calcium 9.7 mg/dL (8.5-10.1) 03/18/22 10:15 Albumin 4.0 g/dL (3.4-5.0) 03/18/22 10:15 Glucose 96 mg/dL (74-106) 03/18/22 10:15 C-Reactive Protein 0.58 mg/dL (0.0-0.3) H 03/18/22 10:15 Liver Function Panel: Alanine Aminotransferase (ALT/SGPT) 26 U/L (14-59) 03/18/22 10: 15 Aspartate Amino Transf (AST/SGOT) 26 U/L (15-37) 03/18/22 10:15 Coagulation Panel: No Data to Display Cardiac Panel: No Data to Display Arterial Blood Gas: No Data to Display Venous Blood Gas: No Data to Display Pancreas Panel: No Data to Display Thyroid Panel: No Data to Display Infectious Disease: No Data to Display Blood Cultures: No Data to Display Toxicology Panel: No Data to Display Anesthesia Assessment and Plan Anesthesia History Personal History: No History of Anesthesia Complications Family History: No Family History of Anesthesia Complications Exercise Tolerance Exercise Tolerance: Metabolic Equivalents>4 Pertinent Negatives Pertinent Negatives: No Symptoms of GERD (on. meds. controlled) and No Major Cardiovascular Symptoms or Complaints Cardiac & Pulmonary Exam Cardiac Exam: Normal S1/S2 Heart Sounds Pulmonary Exam: Clear Bilateral Breath Sounds Implantable Cardiac Device Does patient have a Pacemaker or an ICD?: No Airway Exam Known Difficult Airway: No Mallampati Class: 2 Mouth Opening: Normal (> 3cm) Thyromental Distance: Greater than 3 cm Neck Range of Motion: Full ROM Neck Circumference: Normal Teeth Condition: Normal Dentition ASA Classification ASA Score: ASA 2 Emergency Case?: No NPO Status NPO Status: NPO Clears >2 hours, Solids >8 hours Anesthesia Plan Resuscitation Status: Full Code Anesthesia Technique: General Anesthesia Airway Planned: Natural Airway Monitors Used: Standard Monitors
[2022-03-26 09:43] VITALS: BMI 18.5
--- NOTE | 2022-03-26 10:12 | BOWEL_PTH ---
PATIENT: Mell Luong LOC: [facility] U#:[id number] AGE/SX: 66/F ROOM: RE03/26/[address]: Ryder Gamez MD : [id number] BED: DIS: 03/26/2022 SPEC #: [id number] RECD: 03/26/22 12:29 STATUS: FREDO RE #: [id number] DEVAUGHN: 03/26/22 10:[address]: Ryder Gamez DEPT: Surgical Specimen RECD BY: Patty Holloway ENTERED: 03/26/22 12:32 SP TYPE: Bowel OTHR DR: Yovany Burk, BRONWYN Tissues: 1 - BIOPSY BOWEL 2 - STOMACH BIOPSY 3 - STOMACH BIOPSY 4 - ESOPHAGUS BIOPSY 5 - ESOPHAGUS BIOPSY 6 - BIOPSY BOWEL Procedures: GROSS AND MICRO LEVEL 4 Comments: [id number]
[2022-03-26 10:43] VITALS: BP 97/60; PULSE 64; RESP 14; TEMP 36.3
--- NOTE | 2022-03-26 10:57 | W.ANESPOSTOP ---
Postoperative Evaluation Date, Time and Location Date Performed: 03/26/22 Time Performed: 10:57 Patient Location: Day Surgery Unit Vital Signs Most Recent Imported Vital Signs: Most Recent Vital Signs Temp Pulse Resp BP Pulse Ox 36.3 C L 64 14 97/60 L 97 03/26/22 10:43 03/26/22 10:43 03/26/22 10:43 03/26/22 10:43 03/26/22 08:42 Pain Score Most Recent Pain Score: Most Recent Pain Score Pain Level 0 03/26/22 10:43 Assessment Mental Status: Awake (Alert & Oriented to Patient Baseline) Airway and Respiratory Function: Patent airway with normal (patient baseline) respiratory exam Cardiovascular Function: Hemodynamically Stable Hydration Status: Adequately Hydrated Nausea & Vomiting: No Nausea or Vomiting Pain: Pt. Denies Any Pain Peripheral Nerve Block: Patient did not receive a nerve block
[2022-03-26 11:10] VITALS: BP 96/68; PULSE 56; RESP 16; TEMP 36.5; O2SAT 98
== END 2022-03-26 11:47 | disposition home or self-care (01) ==
PROVIDERS: PCP Nurse Practitioner Family; Visit Provider Surgery
PROC: (CPT 45380; principal; 2022-03-26 10:00)
DX: K21.9 Gastro-esophageal reflux disease without esophagitis (principal); K29.60 Other gastritis without bleeding; R19.7 Diarrhea, unspecified; K52.831 Collagenous colitis; K22.89 Other specified disease of esophagus; K31.89 Other diseases of stomach and duodenum
CPT/HCPCS: 45380; 43239; 88305

== ENCOUNTER 2022-05-02 01:42 | Outpatient (CLI) | payer OTHER, SELFPAY ==
--- NOTE | 2022-05-02 08:00 | DI.CT_ITS ---
Exam(s) CT ABDOMEN PELVIS W EXAM: CT ABDOMEN PELVIS W CLINICAL HISTORY: abd pain/neg egd CE,S/P CHOLECYSTECTOMY,SBO,NAUSEA. TECHNIQUE: Imaging Protocol: Axial computed tomography images with coronal and sagittal reformatted images were created and reviewed CONTRAST MATERIAL: Intravenous: Omnipaque 350 Contrast volume:64 mL Oral: yes / COMPARISON: CT ABD PELVIS WITH CONTRAST from 06/28/2009 CT CHEST ABD WITH CONTRAST from 01/27/2014 FINDINGS: ABDOMEN: Lung Bases: Normal where visualized. Liver: Normal density. No measurable mass. Gallbladder and biliary tract: Status post cholecystectomy. No radiodense calculus or biliary dilati on. Surgical clip also seen at posterior border liver. Pancreas: Normal density, no abnormal calcifications or inflammatory process. Spleen: Normal. Kidneys: Normal size, contour and axis. No radiodense stones or obstructive uropathy. No suspicious m asses seen. Adrenal glands: No masses seen. Abdominal Aorta: Abdominal portion non-dilated. Soft tissues: Unremarkable. PELVIS: Bladder: No gross wall thickening. No calculi.No focal mass. Bowel: No obstruction. No bowel wall thickening. Peritoneal cavity: No ascites, collection or mese nteric inflammatory response. Bones: Within normal limits for age. Reproductive organs: Status post hysterectomy. Lymph nodes: Unremarkable. Impression: Status post cholecystectomy. No abnormal right upper quadrant fluid collection or biliary dilatation . Bowel is unremarkable. RADIATION DOSE DELIVERED: 453.03mGy.cm Total DLP DATA REPOSITORY: All CT scans at this facility are submitted to the National Radiology Data Registry (NRDR) Dose Index Registry (DIR) with the [employer] (ACR). RADIATION OPTIMIZATION: All CT scans at this facility use at least one of these dose optimization te chniques: automated exposure control; mA and/or kV adjustment per patient size (includes targeted exa ms where dose is matched to clinical indication); or iterative reconstruction.
[2022-05-02] MEDS: Barium Sulfate 2% W/V-Berry Smoothie 450 ML BTL PO (14:34)
[2022-05-02] MEDS: Normal Saline - Diluent 50 ML VIAL IJ (16:52)
[2022-05-02] MEDS: Omnipaque 350 MG/ML 500 ML BTL-Imaging package IJ (16:52)
== END 2022-05-02 02:02 ==
LOC: DI 01:42
PROVIDERS: PCP Nurse Practitioner Family; Visit Provider Surgery
DX: K56.609 Unspecified intestinal obstruction, unspecified as to partial versus complete obstruction (principal); K66.0 Peritoneal adhesions (postprocedural) (postinfection); R10.9 Unspecified abdominal pain; R11.0 Nausea; R53.83 Other fatigue; Z90.49 Acquired absence of other specified parts of digestive tract; Z90.710 Acquired absence of both cervix and uterus
CPT/HCPCS: 74177

== ENCOUNTER 2022-07-24 11:52 | Emergency (ER) | payer OTHER, SELFPAY ==
[2022-07-24] VITALS (10 sets, daily range): BP systolic 121–147; BP diastolic 62–69; PULSE 46–54; RESP 9–18; TEMP 36.7; O2SAT 98–100
--- NOTE | 2022-07-24 11:45 | RT.EKG_ITS ---
APPROVED REPORT Exam: Resting ECG Reason for Exam: sob Patient Location: E HR:50 bpm ECG Measurements Heart Rate 50 AXIS NM 144 P 76 QRSd 70 QRS 71 QT 426 T 66 QTc 389 Conclusion Sinus bradycardia...rate< 60 sinus bradycardua, normal axis, normal intervals, non ischemic
[2022-07-24 12:53] LABS: Abs Immature Grans 0.01 10^3/uL (0.0-0.06); Absolute Basophil Count 0.03 10^3/uL (0.0-0.2); Absolute Lymphocyte Count 1.03 10^3/uL (1.2-3.4); Absolute Monocyte Count 0.42 10^3/uL (0.1-0.8); Absolute Neutrophil Count 3.35 10^3/uL (1.2-6.7); Basophils % 0.6; HCT 38.4 % (36.0-46.0); HGB 12.9 g/dL (11.2-15.7); Immature Grans % 0.2; Lymphocytes % 20.9; MCH 30.6 pg (27.0-33.0); MCHC 33.6 % (32.0-36.0); MCV 91 fL (80-95); MPV 8.9 fL (8.0-11.0); Monocytes % 8.5; Neutrophils % 67.8; Platelet Count 229 10^3/uL (130-400); RBC 4.21 10^6/uL (3.93-5.22); RDW 12.2 % (11.7-14.6); WBC 4.94 10^3/uL (4.4-10.8)
[2022-07-24 13:07] LABS: Magnesium 1.8 mg/dL (1.8-2.4)
[2022-07-24 13:13] LABS: ALT 35 U/L (14-59); AST 23 U/L (15-37); Albumin 3.9 g/dL (3.4-5.0); Alkaline Phosphatase 45 U/L (46-116); Anion Gap 6.5 mmol/L (3-11); BUN 11 mg/dL (7-18); CO2 32.5 mmol/L (21.0-32.0); CREATININE 0.9 mg/dL (0.55-1.02); Calcium 9.1 mg/dL (8.5-10.1); Chloride 101 mmol/L (98-107); Estimated GFR 69.64 (mL/min/1.73m2); Glucose 94 mg/dL (74-106); Sodium 140 mmol/L (136-145); Total Protein 7.3 g/dL (6.4-8.2); Troponin I < 50 ng/L (<or=60)
[2022-07-24 13:23] LABS: D-Dimer 216 ng/mlFEU (<500)
--- NOTE | 2022-07-24 14:00 | DI.RAD_ITS ---
Exam(s) XR CHEST 2V PA LATERAL EXAM: XR CHEST 2V PA LATERAL CLINICAL HISTORY: shortness of breath. TECHNIQUE: 2D digital imaging was performed. COMPARISON: CT CT ABDOMEN PELVIS W from 05/02/2022 FINDINGS: 2 views: Heart size is normal. The mediastinum is not widened. Lungs are clear. No infiltrates nor pleural effusions. IMPRESSION: No acute pulmonary findings. DATA REPOSITORY: RADIATION DOSE DELIVERED:
--- NOTE | 2022-07-24 14:23 | ED.GENADUL_ITS ---
Discharge Plan Disposition Patient Disposition: Home Discharge Details Clinical Impression: Acute dyspnea Primary Care Provider: Yovany Mckenzie ED Provider: Patty Manzanares Home Meds and New Rx's Prescriptions: Continued cyanocobalamin (vitamin B-12) 2,500 mcg tablet,chewable 2,500 mcg PO DAILY digestive enzymes Tablet 1 tab PO DAILY acyclovir 5 % cream 1 applic TP ONCE PRN (Reason: Recurrent lesions) Qty: 5 1RF Rx Instructions: Apply to lesion when first noticed, QID until healed or 5 days. sucralfate [Carafate] 1 gram tablet 1 g PO BID Qty: 60 1RF Rx Instructions: 30 mins prior to eating super and at bedtime. may cause constipation. esomeprazole magnesium [Nexium] 40 mg capsule,delayed release(DR/EC) 40 mg PO DAILY Qty: 30 12RF budesonide 9 mg capsule, extended release 9 mg PO DAILY Qty: 21 0RF budesonide 6 mg capsule, extended release 6 mg PO DAILY Qty: 21 0RF Rx Instructions: started on 07/06. for 3 wks ondansetron 4 mg tablet,disintegrating 4 mg PO Q8H Qty: 20 6RF L-Lysine 500 MG capsule 500 mg PO DAILY PRN hawthorn extract 150 MG capsule 450 mg PO DAILY Lactobacillus acidophilus 1 EACH capsule 1 cap PO DAILY PYRIDOXINE HCL 100 MG tablet 100 mg PO DAILY multivitamin [Daily Vitamin] 1 EACH tablet 1 ea PO daily prn Rx Instructions: DURING WINTER MONTHS echinacea 500 MG capsule 500 mg PO DAILY PRN Rx Instructions: WINTER ONLY coenzyme Q10 [CoQ-10] 100 MG capsule 100 mg PO DAILY PRN Oyster Shell Calcium and Mag 1 EACH tablet 1 ea PO DAILY Rx Instructions: 400/200 mg budesonide 3 mg capsule,delayed,extend.release 9 mg PO DAILY Rx Instructions: 06/11/22 pharmacy phoned unable to get 9mg capsule, can get script covered with 3mg tabs 3 daily. CHARLINE Sewell atenolol 25 mg tablet 12.5 mg PO HS Rx Instructions: 12.5 MG DAILY Discharge Instructions Instructions: Dyspnea (ED) Additional Instructions: Please follow-up with your primary care physician in 1 to 2 days for reassessment Return earlier should you develop new or worsening complaints Your tests today are all reassuring Referrals: Yovany Mckenzie, [facility] [Primary Care Provider] - Discharge Data Discharge Date/Time-TO BE ENTERED AT DEPARTURE: 07/24/22 14:27 Medical Decision Making This 66-year-old female presents with report of shortness of breath that started while she was at her surgery appointment History of similar episodes in the past, D-dimer negative, troponin negative with greater than 3 hours of symptoms, EKG without significant acute abnormality, chest x-ray without any evidence of pneumothorax or other acute abnormality, feeling symptomatically improved, vitals remained stable No exogenous hormones, low suspicion clinically for pulmonary embolism with negative D-dimer, no pneumothorax on chest x-ray, low suspicion for cardiac etiology of patient's complaints Patient is bradycardic, she is on atenolol Return precautions reviewed and patient expressed understanding, discharged home in stable condition with stable vitals, follow-up with primary care physician recommended HPI General Date/Time Provider Initiated Documentation: 07/24/22 12:12 . HPI Narrative: This 66-year-old female presents with report of shortness of breath. Denies any fever or chills. Denies any chest pain. States these episodes been happening for several years and states she has not been evaluated for them and they typically self resolve after 2 to 3 hours. She is wondering if perhaps it is anxiety. She denies any pleuritic pain associated. She denies any exertional components, calf pain or swelling, or any additional complaints at this time. Related Data Home Medications Medication Instructions Recorded Confirmed Lactobacillus acidophilus 100 1 cap PO DAILY 07/02/12 07/24/22 million cell capsule Pyridoxine Hcl 100 mg PO DAILY 07/02/12 07/24/22 hawthorn extract 150 mg capsule 450 mg PO DAILY 07/02/12 07/24/22 lysine 500 mg capsule (L-Lysine) 500 mg PO DAILY PRN 07/02/12 07/24/22 calcium carbonate-magnesium oxide 1 ea PO DAILY 08/25/14 07/24/22 250 mg-155 mg tablet (Oyster Shell Calcium and Magnesium) coenzyme Q10 100 mg capsule 100 mg PO DAILY PRN 08/25/14 07/24/22 (CoQ-10) echinacea 500 mg capsule 500 mg PO DAILY PRN 08/25/14 07/24/22 multivitamin (Daily Vitamin tablet) 1 ea PO daily prn 08/25/14 07/24/22 cyanocobalamin (vitamin B-12) 2,500 mcg PO DAILY 09/17/21 07/24/22 2,500 mcg chewable tablet digestive enzymes 1 tab PO DAILY 09/17/21 07/24/22 acyclovir 5 % topical cream 1 applic topical ONCE PRN 12/21/21 07/24/22 Recurrent lesions #5 grams atenolol 25 mg tablet 12.5 mg PO HS 03/25/22 07/24/22 sucralfate 1 gram tablet (Carafate) 1 g PO BID #60 tabs 05/05/22 07/24/22 budesonide 9 mg capsule,extended 9 mg PO DAILY #21 caps 06/09/22 07/24/22 release esomeprazole magnesium 40 mg 40 mg PO DAILY #30 caps 06/09/22 07/24/22 capsule,delayed release (Nexium) budesonide 3 mg 9 mg PO DAILY 06/11/22 07/24/22 capsule,delayed,extended release budesonide 6 mg capsule,extended 6 mg PO DAILY #21 caps 06/30/22 07/24/22 release ondansetron 4 mg disintegrating 4 mg PO Q8H #20 tabs 07/24/22 07/24/22 tablet Previous Rx's Medication Instructions Recorded acyclovir 5 % topical cream 1 applic topical ONCE PRN 12/21/21 Recurrent lesions #5 grams sucralfate 1 gram tablet (Carafate) 1 g PO BID #60 tabs 05/05/22 budesonide 9 mg capsule,extended 9 mg PO DAILY #21 caps 06/09/22 release esomeprazole magnesium 40 mg 40 mg PO DAILY #30 caps 06/09/22 capsule,delayed release (Nexium) budesonide 6 mg capsule,extended 6 mg PO DAILY #21 caps 06/30/22 release ondansetron 4 mg disintegrating 4 mg PO Q8H #20 tabs 07/24/22 tablet Allergies Allergy/AdvReac Type Severity Reaction Status Date / Time tomato Allergy Intermediate SORES Verified 07/24/22 11:30 nickel Allergy RED RUNNY Verified 07/24/22 11:30 RASH DUST Allergy Intermediate Other (See Uncoded 07/24/22 11:30 Comment) General Stated Complaint: SOB CED: 3 PFSH All Active Problems (Updated 07/24/22 @ 14:17 by DANIEL Wilhelm) Acute dyspnea (Acute) Chronic abdominal pain (Acute) Fluttering heart (Acute) SOB (shortness of breath) (Acute) Bile reflux gastritis (Acute) Collagenous colitis (Acute) pt declines treatment Hx SBO (Acute) Intra-abdominal adhesions (Acute) Chronic nausea (Acute) Fatigue (Acute) Acquired absence of both cervix and uterus (Acute 01/01/16) S/P LISA/BSO for endometriosis Allergic rhinitis (Acute 07/07/13) Gastroesophageal reflux disease (Acute) EGD 2022 normal Palpitations (Acute) holter 1999, occasional single PVCs Status post cataract extraction and insertion of intraocular lens of right eye (Chronic 01/08/18) Status post cataract extraction and insertion of intraocular lens of left eye (Chronic 01/22/18) Status post cholecystectomy (Acute) History of bilateral oophorectomy (Acute) Atrophic vaginitis (Acute) Diarrhea (Acute) Medical History (Updated 07/24/22 @ 14:17 by DANIEL Wilhelm) Abdominal pain Acquired iron deficiency anemia due to increased iron requirement Carpal tunnel syndrome of left wrist (09/03/15) Chest pain Pt. denies this, stated it was caused from GERD COVID-19 06/27/21 Endometriosis Gallbladder calculus Intestinal obstruction Nuclear sclerotic cataract of left eye Nuclear sclerotic cataract of right eye Screening cholesterol level Small bowel obstruction Surgical History Abdominal hysterectomy (~1981) Cholecystectomy (~2004) H/O colonoscopy H/O esophagogastroduodenoscopy Oophrectomy, Both 1982 small bowel obstruction (~09/2000) Status post abdominal hysterectomy Family History Mother , 91 Diabetes Alcohol abuse Heart disease pacemaker Hyperlipidemia Stroke Melanoma Father , 84 Essential hypertension Heart disease Stroke Pancreatic cancer Sister Essential hypertension Hyperlipidemia Sister Essential hypertension Brother Asthma Maternal Grandfather , 76 Alcohol abuse Heart disease Stroke Paternal Grandfather , 50 Heart disease Maternal Grandmother , 79 Heart disease Paternal Grandmother , 93 Heart disease Maternal Aunt Diabetes Heart disease Sister No problems noted. Social History Smoking/Tobacco Use Status: Never Second Hand Exposure: Yes Smoking risk assessment performed?: Yes Alcohol Intake: current Alcohol Intake frequency: holidays/special occasions only Alcohol type: wine Drug use: Daily Substance use type: marijuana Counseling given: No Counseling provided: none Caregiver/Support person: No Household members: spouse Housing: house Communication Needs: None Do you need help understanding health information?: Rarely Pets and animals: Yes Pets and animals: cat(s) and dog(s) Sexually active: No Do you think of yourself as: straight/heterosexual Current gender identity: female What is your relationship status?: How often do you talk on the phone with friends or family?: three or more times per week How often do you get together with friends or relatives?: twice per week How often do you attend rastafarian or roman catholic services?: 1-3 times per year Do you belong to any clubs or organized social groups?: yes Panel score (0-1 are the most socially isolated patients): 3 What type of physical activity do you participate in: walking, regular exercise and other Details: Stretching, boflex Duration: 30-45 minutes/day Frequency: daily Leni/Scientologist: Mu-Ism Special leni needs: No Seatbelt use: always Helmet use: No Drive intox or ride w/intox certified driver examiner: No Do you feel safe at home: Yes Do you feel safe in your relationship?: Yes Course Vital Signs Vital signs: Vital Signs Temperature 36.7 C 07/24/22 11:55 Pulse 53 L 07/24/22 11:55 Respiratory Rate 18 07/24/22 11:55 Blood Pressure 147/62 H 07/24/22 11:55 Pulse Oximetry 98 07/24/22 11:55 Temperature 36.7 C 07/24/22 11:55 Pulse 53 L 07/24/22 11:55 Pulse 52 L 07/24/22 13:40 Respiratory Rate 9 L 07/24/22 13:40 Respiratory Effort Normal 07/24/22 12:19 Respiratory Depth Normal 07/24/22 12:19 Respiratory Pattern Normal 07/24/22 12:19 Blood Pressure 147/62 H 07/24/22 11:55 Pulse Oximetry 100 07/24/22 13:40 Oxygen Delivery Method Room Air 07/24/22 11:55 Oxygen Flow Rate 0 07/24/22 11:55 Pain Level 0 07/24/22 11:55 Lab/Test Results Lab/Test Results: Laboratory Tests Range/Units 07/24/22 07/24/22 07/24/22 12:10 12:10 12:10 WBC (4.4-10.8) 10^3/uL 4.94 RBC (3.93-5.22) 10^6/uL 4.21 Hgb (11.2-15.7) g/dL 12.9 Hct (36.0-46.0) % 38.4 MCV (80-95) fL 91 MCH (27.0-33.0) pg 30.6 MCHC (32.0-36.0) % 33.6 RDW (11.7-14.6) % 12.2 Plt Count (130-400) 10^3/uL 229 MPV (8.0-11.0) fL 8.9 Immature Gran % 0.2 Neutrophils % 67.8 Lymphocytes % 20.9 Monocytes % 8.5 Eosinophils % 2.0 Basophils % 0.6 Nucleated RBC % (0.0-0.3) % 0.0 Absolute Neutrophils (1.2-6.7) 10^3/uL 3.35 Absolute Lymphocytes (1.2-3.4) 10^3/uL 1.03 L Absolute Monocytes (0.1-0.8) 10^3/uL 0.42 Absolute Eosinophils (0.0-0.7) 10^3/uL 0.10 Absolute Basophils (0.0-0.2) 10^3/uL 0.03 D-Dimer (<500) ng/mlFEU 216 Sodium (136-145) mmol/L 140 Potassium (3.5-5.1) mmol/L 4.0 Chloride (98-107) mmol/L 101 Carbon Dioxide (21.0-32.0) mmol/L 32.5 H Anion Gap (3-11) mmol/L 6.5 BUN (7-18) mg/dL 11 Creatinine (0.55-1.02) mg/dL 0.9 Est GFR (CKD-EPI 2020) (mL/min/1.73m2) 69.64 Glucose (74-106) mg/dL 94 Calcium (8.5-10.1) mg/dL 9.1 Magnesium (1.8-2.4) mg/dL Total Bilirubin (0.2-1.0) mg/dL 1.0 AST (15-37) U/L 23 ALT (14-59) U/L 35 Alkaline Phosphatase (46-116) U/L 45 L Troponin I (<or=60) ng/L < 50 Total Protein (6.4-8.2) g/dL 7.3 Albumin (3.4-5.0) g/dL 3.9 Range/Units 07/24/22 12:10 WBC (4.4-10.8) 10^3/uL RBC (3.93-5.22) 10^6/uL Hgb (11.2-15.7) g/dL Hct (36.0-46.0) % MCV (80-95) fL MCH (27.0-33.0) pg MCHC (32.0-36.0) % RDW (11.7-14.6) % Plt Count (130-400) 10^3/uL MPV (8.0-11.0) fL Immature Gran % Neutrophils % Lymphocytes % Monocytes % Eosinophils % Basophils % Nucleated RBC % (0.0-0.3) % Absolute Neutrophils (1.2-6.7) 10^3/uL Absolute Lymphocytes (1.2-3.4) 10^3/uL Absolute Monocytes (0.1-0.8) 10^3/uL Absolute Eosinophils (0.0-0.7) 10^3/uL Absolute Basophils (0.0-0.2) 10^3/uL D-Dimer (<500) ng/mlFEU Sodium (136-145) mmol/L Potassium (3.5-5.1) mmol/L Chloride (98-107) mmol/L Carbon Dioxide (21.0-32.0) mmol/L Anion Gap (3-11) mmol/L BUN (7-18) mg/dL Creatinine (0.55-1.02) mg/dL Est GFR (CKD-EPI 2020) (mL/min/1.73m2) Glucose (74-106) mg/dL Calcium (8.5-10.1) mg/dL Magnesium (1.8-2.4) mg/dL 1.8 Total Bilirubin (0.2-1.0) mg/dL AST (15-37) U/L ALT (14-59) U/L Alkaline Phosphatase (46-116) U/L Troponin I (<or=60) ng/L Total Protein (6.4-8.2) g/dL Albumin (3.4-5.0) g/dL
== END 2022-07-24 14:27 | disposition home or self-care (01) ==
PROVIDERS: Emergency Provider Physician Assistant; PCP Nurse Practitioner Family
DX: R06.09 Other forms of dyspnea (principal); R06.02 Shortness of breath
CPT/HCPCS: 36415; 80053; 93005; 99284; 71046; 83735; 84484; 85025; 85379; 93010; 99283

== ENCOUNTER 2022-08-07 04:19 | Outpatient (CLI) | payer OTHER, SELFPAY ==
[2022-08-07 11:25] LABS: Hemoglobin A1C 5.6 % (<5.7)
[2022-08-07 11:36] LABS: Iron 78 ug/dL (50-170)
[2022-08-07 12:04] LABS: Anion Gap 4.5 mmol/L (3-11); BUN 9 mg/dL (7-18); CO2 32.5 mmol/L (21.0-32.0); CREATININE 0.9 mg/dL (0.55-1.02); Calcium 9.2 mg/dL (8.5-10.1); Chloride 104 mmol/L (98-107); Estimated GFR 69.64 (mL/min/1.73m2); Ferritin 61 ng/mL (8-252); Glucose 94 mg/dL (74-106); Potassium 4.3 mmol/L (3.5-5.1); Sodium 141 mmol/L (136-145); TSH (W/Ref FT4) 2.82 uIU/mL (0.36-3.74)
[2022-08-07 12:10] LABS: Vitamin B12 > 2000 pg/mL (193-986)
== END 2022-08-07 04:20 | disposition home or self-care (01) ==
LOC: LOS 04:19
PROVIDERS: PCP Nurse Practitioner Family; Visit Provider Nurse Practitioner Family
DX: K52.831 Collagenous colitis (principal)
CPT/HCPCS: 36415; 80048; 82607; 82728; 83036; 83540; 84443

== ENCOUNTER 2022-11-18 10:29 | Outpatient (REF) | payer OTHER, SELFPAY ==
[2022-11-20 13:46] LABS: Helicobacter pylori Ag, Feces Negative (Negative)
== END 2022-11-18 10:30 | disposition home or self-care (01) ==
LOC: LBN 10:29
PROVIDERS: PCP Nurse Practitioner Family; Visit Provider Nurse Practitioner Family
DX: K29.70 Gastritis, unspecified, without bleeding (principal)
CPT/HCPCS: 87338

== ENCOUNTER → 2023-02-26 02:23 | Outpatient (CLI) | payer OTHER, SELFPAY ==
--- NOTE | 2023-02-26 | DI.MAMMO_ITS ---
Exam(s) MAMMO SCREENING EXAM: MAMMO SCREENING CLINICAL HISTORY: screening,Z12.39 TECHNIQUE: Mammograms were interpreted according to the usual protocol including computer analysis w [employer] CAD system, tomosynthesis and C-view imaging. COMPARISON: 2013 through 2021 FINDINGS: The breasts are composed of heterogeneously dense fibroglandular densities, Breast Density category C . No suspicious masses or suspicious microcalcifications are seen. No skin thickening or abnormal axillary lymph nodes are seen. There has been no significant change from prior exams. IMPRESSION: BI-RADS Category 1, Negative mammogram. Yearly screening mammography is recommended. Breast Density Category C, heterogeneously Dense. The mammogram demonstrates the patient's breast tissue is dense. Dense breast tissue is very common a nd is not abnormal but dense breast tissue can make it harder to find cancer on a mammogram. Also, de nse breast tissue may increase breast cancer risk. This information about the result of the mammogram report was provided to the patient to raise their awareness. Use this report when you speak with the patient about their risks for breast cancer, which includes their family history. At that time, you may recommend additional screening tests (Ultrasound or MRI) as they might be useful based on their r isk. A negative radiographic report should not delay biopsy if a dominant or clinically suspicious mass is present. Up to ten percent of cancers are not identified on mammography. A negative report may reinforce clinical impression. Adenosis and dense breasts may obscure an underlying neoplasm. False positive reports average 6 to 10%.
--- NOTE | 2023-02-26 | DI.DEXA_ITS ---
Exam(s) XR DEXA BONE DENSITY W/WO OSVALDO EXAM: XR DEXA BONE DENSITY W/WO OSVALDO CLINICAL HISTORY: screening for osteoporosis IN POSTMENOPAUSAL WOMAN,Z78.0 TECHNIQUE: [employer] Horizon C densitometer analysis of left hip, lumbar spine and left forearm. Lat eral survey image of the thoracic and lumbar spine. COMPARISON: No exams were available for comparison FINDINGS: Lateral view of the thoracic and lumbar spine shows no evidence of compression fractures. Bone mineral density measurements of the lumbar spine correspond to a total T-score of -0.6, in the n ormal range. Bone mineral density measurements of the left hip correspond to a total T-score of -1.9. The femora l neck T-score is -2.1, in the osteopenic range.. Theleft forearm bone mineral density measurements correspond to a T-score of the distal 3rd of 0.1, in the normal range.. IMPRESSION: Osteopenia of the spine and hip. Normal bone density of the forearm.
== END ==
PROVIDERS: PCP Nurse Practitioner Family; Visit Provider Nurse Practitioner Family
DX: Z12.31 Encounter for screening mammogram for malignant neoplasm of breast (principal); Z13.820 Encounter for screening for osteoporosis; M85.89 Other specified disorders of bone density and structure, multiple sites
CPT/HCPCS: 77063; 77067; 77080

== ENCOUNTER → 2023-07-31 00:29 | Outpatient (CLI) | payer OTHER, SELFPAY ==
--- NOTE | 2023-07-31 | DI.CT_ITS ---
Exam(s) CT ABDOMEN PELVIS W EXAM: CT ABDOMEN PELVIS W CLINICAL HISTORY: NAUSEA R11.0 ABD PAIN R10.9 G89.29 DIARRHEA R19.7. TECHNIQUE: Imaging Protocol: Axial computed tomography images with coronal and sagittal reformatted images were created and reviewed CONTRAST MATERIAL: Intravenous: Omnipaque 350 Contrast volume:100 ml Oral: yes / COMPARISON: No exams were available for comparison FINDINGS: ABDOMEN and PELVIS: Lung Bases: No acute findings. Liver: Normal density. No suspicious mass. Gallbladder and biliary tract: Status post cholecystectomy no biliary dilation. Pancreas: Normal density. No abnormal calcifications or inflammatory process. No evidence of mass. Spleen: Normal. Kidneys: Normal size, contour and axis. No radiodense stones. No obstructive uropathy. No suspicious masses seen. Adrenal glands: No masses seen. Vasculature: Abdominal aorta non-dilated. Soft tissues: Unremarkable. Bladder: No gross wall thickening. No calculi.No focal mass. Bowel: Administered oral contrast extends to level mid transverse colon. The colon is quite redundan t. Moderate to increased stool. No obstruction. No bowel wall thickening. Appendix not visualized . Peritoneal cavity: No ascites. No focal collection. No mesenteric inflammatory response. Surgical clips in the right lower pelvis. Bones: Unremarkable for age. Reproductive organs: Status post hysterectomy Lymph nodes: No pathologically enlarged lymph nodes. IMPRESSION:: No acute abnormality in the abdomen or pelvis. RADIATION DOSE DELIVERED: 498.95mGy.cm Total DLP DATA REPOSITORY: All CT scans at this facility are submitted to the National Radiology Data Registry (NRDR) Dose Index Registry (DIR) with the [employer] (ACR). RADIATION OPTIMIZATION: All CT scans at this facility use at least one of these dose optimization te chniques: automated exposure control; mA and/or kV adjustment per patient size (includes targeted exa ms where dose is matched to clinical indication); or iterative reconstruction.
[2023-07-31] MEDS: Barium Sulfate 2% W/V-Berry Smoothie 450 ML BTL PO ×2 (09:18→09:19)
[2023-07-31 09:23] LABS: CREATININE 0.9 mg/dL (0.55-1.02)
[2023-07-31] MEDS: Normal Saline - Diluent 50 ML VIAL IJ (10:21)
[2023-07-31] MEDS: Omnipaque 350 MG/ML 500 ML BTL-Imaging package 100 ML IJ (10:22)
== END ==
PROVIDERS: PCP Nurse Practitioner Family; Visit Provider Nurse Practitioner Family
DX: R10.9 Unspecified abdominal pain (principal); R11.0 Nausea; R19.7 Diarrhea, unspecified; Z01.812 Encounter for preprocedural laboratory examination; Z90.49 Acquired absence of other specified parts of digestive tract
CPT/HCPCS: 74177; 82565

== ENCOUNTER 2023-08-11 10:46 | Outpatient (CLI) | payer OTHER, SELFPAY ==
--- NOTE | 2023-08-11 10:45 | RT.EKG_ITS ---
APPROVED REPORT Exam: Resting ECG Reason for Exam: heart flutter Patient Location: O HR:66 bpm ECG Measurements Heart Rate 66 AXIS MI 149 P 82 QRSd 77 QRS 73 QT 391 T 66 QTc 410 Conclusion Sinus rhythm...normal P axis, V-rate 50- 99 Left atrial enlargement...P, P'>60mS, <-0.15mV V1 Baseline wander in lead(s) II,III,aVF Otherwise normal ECG
== END 2023-08-11 10:47 | disposition home or self-care (01) ==
LOC: DI.CM 10:47
PROVIDERS: PCP Nurse Practitioner Family; Visit Provider Nurse Practitioner Family
DX: I49.8 Other specified cardiac arrhythmias (principal)
CPT/HCPCS: 93010

== ENCOUNTER 2023-08-11 11:46 | Emergency (ER) | payer OTHER, SELFPAY ==
[2023-08-11] VITALS (11 sets, daily range): BP systolic 112–116; BP diastolic 38–61; PULSE 55–65; RESP 10–16; TEMP 35.7; O2SAT 98–100
--- NOTE | 2023-08-11 11:45 | RT.EKG_ITS ---
APPROVED REPORT Exam: Resting ECG Reason for Exam: SOB Patient Location: E HR:63 bpm ECG Measurements Heart Rate 63 AXIS NC 139 P 85 QRSd 75 QRS 71 QT 395 T 72 QTc 405 Conclusion Sinus rhythm 63 normal axis no stemi
[2023-08-11 12:13] LABS: Abs Immature Grans 0.01 10^3/uL (0.0-0.06); Absolute Basophil Count 0.02 10^3/uL (0.0-0.2); Absolute Eosinophil Count 0.04 10^3/uL (0.0-0.7); Absolute Lymphocyte Count 0.99 10^3/uL (1.2-3.4); Absolute Monocyte Count 0.36 10^3/uL (0.1-0.8); Absolute Neutrophil Count 3.41 10^3/uL (1.2-6.7); Basophils % 0.4 %; Eosinophils % 0.8 %; HGB 12.1 g/dL (11.2-15.7); Immature Grans % 0.2 %; Lymphocytes % 20.5 %; MCH 31.4 pg (27.0-33.0); MCHC 33.6 % (32.0-36.0); MCV 94 fL (80-95); MPV 8.6 fL (8.0-11.0); Monocytes % 7.5 %; Neutrophils % 70.6 %; Platelet Count 220 10^3/uL (130-400); RBC 3.85 10^6/uL (3.93-5.22); RDW 12.6 % (11.7-14.6); RDW-SD 43.8 fL; WBC 4.83 10^3/uL (4.4-10.8)
[2023-08-11 12:38] LABS: Bilirubin Negative (Negative); Blood Negative (Negative); Clarity Clear (Clear); Glucose Negative (Negative); Ketones Negative (Negative); Leukocyte Esterase Negative (Negative); Nitrite Negative (Negative); Specific Gravity 1.015 (1.005-1.025); Urobilinogen 0.2 mg/dL (Up to 0.2)
[2023-08-11 12:39] LABS: ALT 34 U/L (14-59); AST 22 U/L (15-37); Albumin 3.9 g/dL (3.4-5.0); Alkaline Phosphatase 48 U/L (46-116); Anion Gap 6.6 mmol/L (3-11); BUN 11 mg/dL (7-18); Bilirubin, Total 0.68 mg/dL (0.2-1.0); CO2 32.4 mmol/L (21.0-32.0); CREATININE 0.9 mg/dL (0.55-1.02); Calcium 9.2 mg/dL (8.5-10.1); Chloride 102 mmol/L (98-107); Glucose 116 mg/dL (74-106); Lipase 42 U/L (16-77); Magnesium 1.8 mg/dL (1.8-2.4); NT-proBNP 82 pg/mL (<300); Potassium 3.8 mmol/L (3.5-5.1); Sodium 141 mmol/L (136-145); TSH 3.19 uIU/Ml (0.36-3.74); Total Protein 7.2 g/dL (6.4-8.2)
[2023-08-11 12:43] LABS: Troponin I < 50 ng/L (< or =60)
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
== END 2023-08-11 13:30 | disposition home or self-care (01) ==
PROVIDERS: Emergency Provider Emergency Medicine; PCP Nurse Practitioner Family
DX: R53.83 Other fatigue (principal); R00.2 Palpitations
CPT/HCPCS: 36415; 80053; 83690; 93005; 99284; 81003; 83735; 83880; 84443; 84484; 85025; 93010; 99283

== ENCOUNTER 2023-09-11 10:53 | Outpatient (RCR) | payer OTHER, SELFPAY ==
--- NOTE | 2023-09-16 12:15 | HOLTER_ITS ---
APPROVED REPORT Conclusion This is a 48-hour Holter monitor Rhythm throughout was sinus with an average heart rate of 72. Minimum was 51, maximum 132 There were very rare isolated atrial and ventricular ectopic beats There was no atrial fibrillation, no high-grade AV block, no pauses greater than 3 seconds
== END 2023-10-10 23:59 | disposition home or self-care (01) ==
LOC: CARDOPNVT 10:53
PROVIDERS: PCP Nurse Practitioner Family; Visit Provider Internal Medicine Cardiovascular Disease
DX: R00.2 Palpitations (principal)
CPT/HCPCS: 93225; 93226

== ENCOUNTER 2023-10-06 08:45 | Outpatient (CLI) | payer OTHER, SELFPAY ==
--- NOTE | 2023-10-06 08:45 | RT.EKG_ITS ---
APPROVED REPORT Exam: Resting ECG Reason for Exam: flutter Patient Location: O HR:53 bpm ECG Measurements Heart Rate 53 AXIS OH 146 P 83 QRSd 78 QRS 70 QT 415 T 65 QTc 390 Conclusion Sinus rhythm...normal P axis, V-rate 50- 99 Normal Electrocardiogram
== END 2023-10-06 08:46 | disposition home or self-care (01) ==
LOC: DI.CM 08:46
PROVIDERS: PCP Nurse Practitioner Family; Visit Provider Nurse Practitioner Family
DX: I49.8 Other specified cardiac arrhythmias (principal); R53.83 Other fatigue
CPT/HCPCS: 93010

== ENCOUNTER 2023-10-06 14:47 | Outpatient (REF) | payer OTHER, SELFPAY ==
[2023-10-06 14:29] LABS: HCT 36.9 % (36.0-46.0); HGB 12.3 g/dL (11.2-15.7); MCH 31.1 pg (27.0-33.0); MCHC 33.3 % (32.0-36.0); MCV 93 fL (80-95); MPV 9.6 fL (8.0-11.0); Platelet Count 300 10^3/uL (130-400); RBC 3.95 10^6/uL (3.93-5.22); RDW 12.4 % (11.7-14.6); RDW-SD 42.8 fL; WBC 5.43 10^3/uL (4.4-10.8)
[2023-10-06 14:53] LABS: Anion Gap 4.3 mmol/L (3-11); BUN 12 mg/dL (7-18); CO2 33.7 mmol/L (21.0-32.0); CREATININE 0.8 mg/dL (0.55-1.02); Calcium 9.7 mg/dL (8.5-10.1); Chloride 102 mmol/L (98-107); Estimated GFR 79.71 (mL/min/1.73m2); Glucose 84 mg/dL (74-106); Magnesium 2.1 mg/dL (1.8-2.4); Potassium 4.3 mmol/L (3.5-5.1); Sodium 140 mmol/L (136-145); TSH 3.26 uIU/Ml (0.36-3.74)
== END 2023-10-06 14:48 | disposition home or self-care (01) ==
LOC: LBN 14:47
PROVIDERS: PCP Nurse Practitioner Family; Visit Provider Nurse Practitioner Family
DX: K52.831 Collagenous colitis (principal); K59.1 Functional diarrhea; R00.2 Palpitations; I49.8 Other specified cardiac arrhythmias; R53.83 Other fatigue
CPT/HCPCS: 80048; 85027; 83735; 84443

== ENCOUNTER 2024-12-26 11:49 | Outpatient (CLI) | payer OTHER, SELFPAY ==
--- NOTE | 2024-12-26 11:45 | RT.EKG_ITS ---
APPROVED REPORT Exam: Resting ECG Reason for Exam: Palpitations Patient Location: O HR:56 bpm ECG Measurements Heart Rate 56 AXIS NH 139 P 84 QRSd 91 QRS 69 QT 407 T 66 QTc 393 Conclusion Sinus rhythm...normal P axis, V-rate 50- 99 Probable left atrial enlargement...P >50mS, <-0.10mV V1
== END 2024-12-26 11:50 | disposition home or self-care (01) ==
LOC: DI.CM 11:50
PROVIDERS: PCP Nurse Practitioner Family; Visit Provider Nurse Practitioner Family
DX: R00.2 Palpitations (principal); I51.7 Cardiomegaly
CPT/HCPCS: 93010

== ENCOUNTER 2024-12-28 09:37 | Outpatient (CLI) | payer OTHER, SELFPAY ==
[2024-12-28 10:28] LABS: Abs Immature Grans 0.02 10^3/uL (0.0-0.06); HCT 36.9 % (36.0-46.0); HGB 12.5 g/dL (11.2-15.7); Immature Grans % 0.4 %; MCH 32.1 pg (27.0-33.0); MCHC 33.9 % (32.0-36.0); MCV 95 fL (80-95); MPV 9.1 fL (8.0-11.0); Platelet Count 242 10^3/uL (130-400); RBC 3.89 10^6/uL (3.93-5.22); RDW 12.2 % (11.7-14.6); RDW-SD 42.5 fL; WBC 5.62 10^3/uL (4.4-10.8)
[2024-12-28 10:59] LABS: ALT 33 U/L (10-49); AST 29 U/L (<34); Albumin 4.4 g/dL (3.4-5.0); Alkaline Phosphatase 39 U/L (46-116); Anion Gap 7 mmol/L (3-11); BUN 12 mg/dL (9-23); Bilirubin, Total 1.30 mg/dL (0.2-1.2); CO2 31.0 mmol/L (20.0-31.0); Calcium 9.9 mg/dL (8.3-10.6); Chloride 104 mmol/L (98-107); Cholesterol 185 mg/dL (<200); Glucose 97 mg/dL (74-106); HDL Cholesterol 71 mg/dL (>40); Potassium 4.6 mmol/L (3.5-5.1); Sodium 142 mmol/L (136-145); TSH (W/Ref FT4) 2.21 uIU/mL (0.55-4.78); Total Protein 6.8 g/dL (5.7-8.2)
== END 2024-12-28 09:38 | disposition home or self-care (01) ==
LOC: LBO 09:37
PROVIDERS: PCP Nurse Practitioner Family; Visit Provider Nurse Practitioner Family
DX: K52.831 Collagenous colitis (principal); Z13.220 Encounter for screening for lipoid disorders; R00.2 Palpitations
CPT/HCPCS: 36415; 80053; 80061; 84443; 85025